=== PATIENT | female | born 1965 | race Asian ===

== ENCOUNTER 2020-03-04 21:28 | Emergency (ER) | payer OTHER ==
[2020-03-04] MEDS ORDERED: Morphine 2 MG/ML SYRINGE IVPUSH ONE ×2 (21:44→22:39)
[2020-03-04] MEDS ORDERED: Sodium Chloride 0.9% 10 ML Syringe FLUSH PRN (21:44)
--- NOTE | 2020-03-04 21:50 | EDM.PDOC ---
ED HPI GENERAL MEDICAL PROBLEM - General Chief Complaint: Chest Pain Stated Complaint: PAIN IN CHEST Time Seen by Provider: 03/04/20 21:40 Source of Information: Reports: Patient History Limitations: Reports: No Limitations - History of Present Illness INITIAL COMMENTS - FREE TEXT/NARRATIVE: This 54 yo female patient reports to the ED with a 2 hour history of upper abdominal, chest and upper back pain. The patient reports her symptoms started about 2 hours prior to her arrival in the ED. The patient reports her pain was initially pressure, but now is very hard to describe. The patient reports she has not taken anything for the pain, but was recently started on a steroid for her arthritis. The patient reports she has noticed some abdominal discomfort after taking the steroids. Onset: Today Onset Date: 03/04/20 Onset Time: 19:40 Duration: Constant Location: Reports: Chest, Abdomen, Back (Upper ) Quality: Reports: Ache, Dull Severity: Moderate Improves with: Reports: None Worsens with: Reports: None Context: Reports: Other Associated Symptoms: Reports: Chest Pain, Other Chest Pain Score (Numeric/FACES): 8 - Related Data Allergies Allergy/AdvReac Type Severity Reaction Status Date / Time metformin Allergy Other Verified 03/04/20 21:46 rofecoxib [From Vioxx] Allergy Facial Verified 03/04/20 21:46 Swelling Home Meds: Home Meds methylPREDNISolone [Methylprednisolone] 4 mg PO DAILY 03/04/20 [History] Past Medical History Cardiovascular History: Reports: High Cholesterol Neurological History: Reports: Other (See Below) Other Neuro History: sciatic nerve problem Endocrine/Metabolic History: Reports: Diabetes, Type II - Past Surgical History GI Surgical History: Reports: Appendectomy Social & Family History - Family History Family Medical History: Noncontributory - Caffeine Use Caffeine Use: Reports: Coffee ED ROS GENERAL - Review of Systems Review Of Systems: Comprehensive ROS is negative, except as noted in HPI. ED EXAM, GENERAL - Physical Exam Exam: See Below Exam Limited By: No Limitations General Appearance: Alert, WD/WN, Moderate Distress Eye Exam: Bilateral Eye: EOMI, Normal Inspection, PERRL Ears: Normal External Exam, Normal Canal, Hearing Grossly Normal, Normal TMs Nose: Normal Inspection, Normal Mucosa, No Blood Throat/Mouth: Normal Inspection, Normal Lips, Normal Teeth, Normal Gums, Normal Oropharynx, Normal Voice, No Airway Compromise Head: Atraumatic, Normocephalic Neck: Normal Inspection, Supple, Non-Tender, Full Range of Motion Respiratory/Chest: No Respiratory Distress, Lungs Clear, Normal Breath Sounds, No Accessory Muscle Use, Chest Non-Tender Cardiovascular: Normal Peripheral Pulses, Regular Rate, Rhythm, No Edema, No Gallop, No JVD, No Rub GI/Abdominal: Normal Bowel Sounds, Soft, No Organomegaly, No Distention, No Abnormal Bruit, No Mass, Guarding, Tender (Female) Exam: Deferred Rectal (Female) Exam: Deferred Back Exam: Normal Inspection, Full Range of Motion, NT Extremities: Normal Inspection, Normal Range of Motion, Non-Tender, Normal Capillary Refill, No Pedal Edema Neurological: Alert, Oriented, CN II-XII Intact, Normal Cognition, Normal Gait, Normal Reflexes, No Motor/Sensory Deficits Psychiatric: Normal Affect, Normal Mood Skin Exam: Warm, Dry, Intact, Normal Color, No Rash Lymphatic: No Adenopathy Course - Vital Signs Last Recorded V/S: Last Vital Signs Temp 35.5 C L 03/04/20 23:51 Pulse 72 03/04/20 23:51 Resp 16 03/04/20 23:51 BP 172/88 H 03/04/20 23:51 Pulse Ox 100 03/04/20 23:51 - Orders/Labs/Meds Orders: Active Orders 24 hr Category Date Time Status EKG 12 Lead [EKG Documentation Completion] [RC] ROUTINE Care 03/04/20 22:03 Active CULTURE BLOOD [BC] Stat Lab 03/04/20 22:02 Results Sodium Chloride 0.9% [Saline Flush] Med 03/04/20 21:44 Active 10 ml FLUSH ASDIRECTED PRN Saline Lock Insert [OM.PC] Routine Oth 03/04/20 21:44 Ordered Medication Orders Sodium Chloride (Saline Flush) 10 ml FLUSH ASDIRECTED PRN PRN Reason: Keep Vein Open Last Admin: 03/04/20 22:00 Dose: 10 ml Labs: Laboratory Tests 03/04/20 03/04/20 03/04/20 Range/Units 22:02 22:02 22:02 WBC 16.4 H (5.0-10.0) 10^3/uL RBC 4.50 (4.2-5.4) 10^6/uL Hgb 12.8 (12.0-16.0) g/dL Hct 39.6 (37.0-47.0) % MCV 88.0 (80-100) fL MCH 28.4 (27.0-34.0) pg MCHC 32.3 L (33.0-35.0) g/dL Plt Count 353 D (150-450) 10^3/uL Neut % (Auto) 58.3 (42.2-75.2) % Lymph % (Auto) 32.4 (20.5-50.1) % Mora % (Auto) 7.1 (2-8) % Eos % (Auto) 0.2 L (1.0-3.0) % Baso % (Auto) 0.2 (0.0-1.0) % Add Manual Diff Yes Neutrophils % (Manual) 53 (42-75) % Band Neutrophils % 5 % Lymphocytes % (Manual) 34 (20-50) % Monocytes % (Manual) 7 (2-8) % Eosinophils % (Manual) 1 (1-3) % Sodium (136-145) mmol/L Potassium (3.5-5.1) mmol/L Chloride (98-107) mmol/L Carbon Dioxide (21-32) mmol/L Anion Gap (7-13) mEq/L BUN (7-18) mg/dL Creatinine (0.55-1.02) mg/dL Est Cr Clr Drug Dosing mL/min Estimated GFR (MDRD) BUN/Creatinine Ratio (No establ ref range) Glucose (74-99) mg/dL Lactic Acid 2.3 H* (0.4-2.0) mmol/L Calcium (8.5-10.1) mg/dL Total Bilirubin (0.2-1.0) mg/dL AST (15-37) U/L ALT (14-59) U/L Alkaline Phosphatase (46-116) U/L Troponin I (0.000-0.056) ng/mL Total Protein (6.4-8.2) g/dL Albumin (3.4-5.0) g/dL Globulin Albumin/Globulin Ratio Amylase 89 (25-115) U/L Lipase 834 H (73-393) U/L 06/15/20 Range/Units 22:02 WBC (5.0-10.0) 10^3/uL RBC (4.2-5.4) 10^6/uL Hgb (12.0-16.0) g/dL Hct (37.0-47.0) % MCV (80-100) fL MCH (27.0-34.0) pg MCHC (33.0-35.0) g/dL Plt Count (150-450) 10^3/uL Neut % (Auto) (42.2-75.2) % Lymph % (Auto) (20.5-50.1) % Mora % (Auto) (2-8) % Eos % (Auto) (1.0-3.0) % Baso % (Auto) (0.0-1.0) % Add Manual Diff Neutrophils % (Manual) (42-75) % Band Neutrophils % % Lymphocytes % (Manual) (20-50) % Monocytes % (Manual) (2-8) % Eosinophils % (Manual) (1-3) % Sodium 141 (136-145) mmol/L Potassium 3.8 (3.5-5.1) mmol/L Chloride 103 (98-107) mmol/L Carbon Dioxide 28 (21-32) mmol/L Anion Gap 13.8 H (7-13) mEq/L BUN 20 H (7-18) mg/dL Creatinine 0.77 (0.55-1.02) mg/dL Est Cr Clr Drug Dosing 64.52 mL/min Estimated GFR (MDRD) > 60 BUN/Creatinine Ratio 26.0 (No establ ref range) Glucose 111 H (74-99) mg/dL Lactic Acid (0.4-2.0) mmol/L Calcium 8.7 (8.5-10.1) mg/dL Total Bilirubin 0.3 (0.2-1.0) mg/dL AST 12 L (15-37) U/L ALT 29 (14-59) U/L Alkaline Phosphatase 77 (46-116) U/L Troponin I < 0.017 (0.000-0.056) ng/mL Total Protein 7.2 (6.4-8.2) g/dL Albumin 3.6 (3.4-5.0) g/dL Globulin 3.6 Albumin/Globulin Ratio 1.0 Amylase (25-115) U/L Lipase (73-393) U/L Meds: Medications Generic Name Dose Route Start Last Admin Trade Name Erwinq PRN Reason Stop Dose Admin Sodium Chloride 10 ml 03/04/20 21:44 03/04/20 22:00 Saline Flush FLUSH 10 ml ASDIRECTED PRN Administration Keep Vein Open Discontinued Medications Generic Name Dose Route Start Last Admin Trade Name Erwinq PRN Reason Stop Dose Admin Al Hydroxide/Mg Hydroxide 30 ml 03/05/20 00:05 03/05/20 00:13 Gi Cocktail PO 03/05/20 00:06 30 ml ONETIME ONE Administration Hydromorphone HCl 0.5 mg 03/04/20 23:07 03/04/20 23:15 Dilaudid IVPUSH 03/04/20 23:08 0.5 mg ONETIME ONE Administration Hydromorphone HCl 0.5 mg 03/04/20 23:24 03/04/20 23:28 Dilaudid IVPUSH 03/04/20 23:25 0.5 mg ONETIME ONE Administration Iopamidol 100 ml 03/04/20 23:24 03/04/20 23:44 Isovue-300 (61%) IVPUSH 03/04/20 23:25 75 ml ONETIME ONE Administration Morphine Sulfate 2 mg 03/04/20 21:44 03/04/20 21:53 Morphine IVPUSH 03/04/20 21:45 2 mg ONETIME ONE Administration Morphine Sulfate 2 mg 03/04/20 22:39 03/04/20 22:44 Morphine IVPUSH 03/04/20 22:40 2 mg ONETIME ONE Administration Ondansetron HCl 4 mg 03/05/20 00:08 03/05/20 00:12 Zofran IVPUSH 03/05/20 00:09 4 mg ONETIME ONE Administration Pantoprazole Sodium 40 mg 03/05/20 00:47 03/05/20 00:52 Protonix Iv IVPUSH 03/05/20 00:48 40 mg ONETIME ONE Administration - Re-Assessments/Exams Free Text/Narrative Re-Assessment/Exam: 03/05/20 00:47 The patient was reevaluated. The patient reports her pain is down to a 5/10 after the GI Cocktail. An order was placed for the patient to get IV Protonix in the ED. The patient and her spouse were advised to call her [facility] to let them know that they were seen in the ED this evening due to abdominal pain. Departure - Departure Time of Disposition: 01:12 Disposition: Home, Self-Care 01 Condition: Fair Clinical Impression: Peptic ulcer - Discharge Information *PRESCRIPTION DRUG MONITORING PROGRAM REVIEWED*: Not Applicable *COPY OF PRESCRIPTION DRUG MONITORING REPORT IN PATIENT GABBY: Not Applicable Instructions: Peptic Ulcer, [id number] Forms: ED Department Discharge Care Plan Goals: The patient and spouse were advised of the examination, lab, EKG and CT results during the visit. The patient was given pain medications with little to no change in pain. The patient was given a GI Cocktail which reduced her symptoms. The patient was discharged with a script for Omeprazole (20 mg) #30 to take 1 by mouth 30 minutes prior to eating daily. The patient was encouraged to follow- up with her primary care provider for continued evaluation. The patient should call her [facility] to report her symptoms and visit history. The patient was advised to stop her steroids at this time due to the abdominal pain. If the patient has any additional symptoms or concerns, the patient should either return to the emergency department or visit her primary care facility. Sepsis Event Note (ED) - Focused Exam Vital Signs: Vital Signs Temp Pulse Resp BP Pulse Ox 03/04/20 23:51 35.5 C L 72 16 172/88 H 100 03/04/20 23:05 35.2 C L 66 20 155/92 H 100 03/04/20 22:10 74 20 155/97 H 100 03/04/20 21:30 36.8 C 76 18 147/94 H 100 - My Orders Last 24 Hours: My Active Orders 03/04/20 21:44 Sodium Chloride 0.9% [Saline Flush] 10 ml FLUSH ASDIRECTED PRN Saline Lock Insert [OM.PC] Routine 03/04/20 22:02 CULTURE BLOOD [BC] Stat 03/04/20 22:03 EKG 12 Lead [EKG Documentation Completion] [RC] ROUTINE - Assessment/Plan Last 24 Hours: My Active Orders 03/04/20 21:44 Sodium Chloride 0.9% [Saline Flush] 10 ml FLUSH ASDIRECTED PRN Saline Lock Insert [OM.PC] Routine 03/04/20 22:02 CULTURE BLOOD [BC] Stat 03/04/20 22:03 EKG 12 Lead [EKG Documentation Completion] [RC] ROUTINE
[2020-03-04] MEDS ORDERED: HYDROmorphone 0.5 MG/0.5 ML Syringe IVPUSH ONE ×2 (23:07→23:24)
[2020-03-04 23:17] LABS: ANION GAP 13.8 mEq/L (7-13); CHLORIDE,CL 103 mmol/L (98-107); SODIUM,NA 141 mmol/L (136-145)
[2020-03-04] MEDS ORDERED: Iopamidol 612 MG/ML 100 ML Bottle IVPUSH ONE (23:24)
[2020-03-04 23:52] VITALS: BP 172/88; PULSE 72
[2020-03-05] MEDS ORDERED: GI Cocktail Oral Solution 30 ML PO ONE (00:05)
--- NOTE | 2020-03-05 00:05 | CT ---
PROCEDURE INFORMATION: Exam: CT Abdomen And Pelvis With Contrast Exam date and time: 03/04/2020 11:41 PM Age: 54 years old Clinical indication: Abdominal pain; Generalized; Additional info: Abdominal pain to chest and right shoulder TECHNIQUE: Imaging protocol: Computed tomography of the abdomen and pelvis with intravenous contrast. Radiation optimization: All CT scans at this facility use at least one of these dose optimization techniques: automated exposure control; mA and/or kV adjustment per patient size (includes targeted exams where dose is matched to clinical indication); or iterative reconstruction. Contrast material: ISOVUE 300; Contrast volume: 75 ml; Contrast route: RH; COMPARISON: CT Abdomen Pelvis wo Cont 08/08/2018 7:10 AM FINDINGS: Lungs: No lung base abnormality noted. Liver: There is mild diffuse fatty infiltration of the liver, nonspecific. Gallbladder and bile ducts: Normal. No calcified stones. No ductal dilation. Pancreas: Normal. No ductal dilation. Spleen: Normal. No splenomegaly. Adrenals: Normal. No mass. Kidneys and ureters: Normal. No hydronephrosis. Stomach and bowel: Unremarkable. No obstruction. No mucosal thickening. Appendix: Previous appendectomy. Intraperitoneal space: Unremarkable. No free air. No significant fluid collection. Vasculature: Mild arterial sclerosis with multifocal plaque. Lymph nodes: Unremarkable. No enlarged lymph nodes. Bladder: Unremarkable as visualized. Reproductive: Unremarkable as visualized. Bones/joints: Unremarkable. No acute fracture. Soft tissues: Unremarkable. IMPRESSION: 1. No acute abdominal or pelvic CT pathology. 2. Diffuse fatty infiltration of the liver, nonspecific. 3. Previous appendectomy.
[2020-03-05] MEDS ORDERED: Ondansetron 4 MG/2 ML SDV IVPUSH ONE (00:08)
[2020-03-05] MEDS ORDERED: Pantoprazole 40 MG Vial IVPUSH ONE (00:47)
[2020-03-05] MEDS ORDERED: Promethazine 25 MG/ML SDV IM ONE (01:55)
== END 2020-03-05 02:14 | disposition home or self-care (01) ==
LOC: DL.ED 21:28
DX: K27.9 Peptic ulcer, site unspecified, unspecified as acute or chronic, without hemorrhage or perforation (principal); E11.9 Type 2 diabetes mellitus without complications; Z88.8 Allergy status to other drugs, medicaments and biological substances; Z79.899 Other long term (current) drug therapy; Z90.49 Acquired absence of other specified parts of digestive tract
CPT/HCPCS: 36415; 74177; 80053; 82150; 83605; 83690; 84484; 85025; 87040; 93005; 96372; 96374; 96375; 96376; 99285; A9270; C9113; J1170; J2270; J2405; J2550; Q9967; 99283

== ENCOUNTER 2021-09-20 17:10 | Inpatient (IN) | payer OTHER ==
[2021-09-20] MEDS ORDERED: Albuterol/Ipratropium 3.0-0.5 MG/3 ML Neb Soln NEB ONE (17:20)
[2021-09-20] MEDS ORDERED: Ondansetron 4 MG/2 ML SDV IV ONE (17:28)
[2021-09-20] MEDS ORDERED: Dexamethasone 4 MG/ML SDV IVPUSH ONE (17:29)
[2021-09-20] MEDS ORDERED: Sodium Chloride 0.9% 500 ML IV SCH (17:30)
[2021-09-20] MEDS: Sodium Chloride 0.9% 10 ML Syringe FLUSH PRN (17:38)
[2021-09-20 18:17] LABS: RESPIRATORY SYNCYTIAL VIR NAA NEGATIVE (NEGATIVE)
[2021-09-20 18:27] LABS: CORONAVIRUS COVID-19 NAA POSITIVE (NEGATIVE)
[2021-09-20 18:43] LABS: PTT,PARTIAL THROMBOPLSTIN TIME 23.3 SEC (22.0-34.0)
[2021-09-20 18:44] LABS: ANION GAP 11.8 mEq/L (7-13); CHLORIDE,CL 100 mmol/L (98-107); SODIUM,NA 139 mmol/L (136-145)
[2021-09-20] MEDS ORDERED: Potassium Chloride 20 MEQ in Premix Bag 1 BAG IV ONE ×2 (18:53→23:34)
--- NOTE | 2021-09-20 18:54 | EDM.PDOC ---
Scribed by Adelita Mina 09/20/21 [id number] for Ge Snell MD <Ge Snell - Last Filed: 09/20/21 18:54> ED HPI GENERAL MEDICAL PROBLEM - General Chief Complaint: General Stated Complaint: AMBULANCE Time Seen by Provider: 09/20/21 17:11 Source of Information: Reports: Patient, EMS, EMS Notes Reviewed, Old Records, RN, RN Notes Reviewed History Limitations: Reports: No Limitations - History of Present Illness INITIAL COMMENTS - FREE TEXT/NARRATIVE: Patient presents to ED by [facility] with complaint of sh ortness of breath, severe fatigue, malaise, dry mouth, and diarrhea. Admits to nausea. Denies vomiting, chest pain, or rash. She was diagnosed with COVID 14 days ago. She went to clinic this last week and was given IV fluids and IV antibiotics, but continued to worsen. Shortness of breath is so severe that she feels quite lightheaded and feels like she will faint if taking a few steps. Patient also reports she is on Humira for psoriatic arthritis. She is suppose to hold the Humira if she has an illness, but when she became ill with COVID she forgot and took the Humira anyway. Duration: Day(s): (15), Constant, Getting Worse Location: Reports: Chest, Generalized Severity: Severe Improves with: Reports: None Worsens with: Reports: Other (Activity/exertion) Context: Reports: Sick Contact Associated Symptoms: Reports: No Other Symptoms Generalized Pain Score (Numeric/FACES): 8 - Related Data Allergies Allergy/AdvReac Type Severity Reaction Status Date / Time metformin Allergy Other Verified 09/20/21 17:42 rofecoxib [From Vioxx] Allergy Facial Verified 09/20/21 17:42 Swelling Home Meds: Home Meds Amoxicillin/Potassium Clav [Amox Tr-K Clv 875-125 mg Tab] 1 each PO BID 09/20/21 [History] Azithromycin [Zithromax] 250 mg PO DAILY 09/20/21 [History] Empagliflozin [Jardiance] 25 mg PO DAILY 09/20/21 [History] Hydroxychloroquine [Plaquenil] 200 mg PO ASDIRECTED 09/20/21 [History] SitaGLIPtin [Januvia] 100 mg PO DAILY 09/20/21 [History] predniSONE [Prednisone] 5 mg PO DAILY 09/20/21 [History] sulfaSALAzine 500 mg PO TID 09/20/21 [History] Past Medical History - Past Health History Medical/Surgical History: Denies Medical/Surgical History HEENT History: Reports: Impaired Vision Cardiovascular History: Reports: High Cholesterol Gastrointestinal History: Reports: GERD Genitourinary History: Reports: Renal Calculus [employer] History: Reports: Musculoskeletal History: Reports: Arthritis Neurological History: Reports: Other (See Below) Other Neuro History: sciatic nerve problem Psychiatric History: Reports: Anxiety, Depression, Panic Attack Endocrine/Metabolic History: Reports: Diabetes, Type II Dermatologic History: Reports: Psoriasis - Past Surgical History GI Surgical History: Reports: Appendectomy Social & Family History - Family History Family Medical History: No Pertinent Family History - Caffeine Use Caffeine Use: Reports: Coffee - Living Situation & Occupation Living situation: Reports: , with Spouse ED ROS GENERAL - Review of Systems Review Of Systems: Comprehensive ROS is negative, except as noted in HPI. ED EXAM, GENERAL - Physical Exam Exam: See Below Exam Limited By: No Limitations General Appearance: Alert, No Apparent Distress, Other (Ill but non-toxic appearing) Eye Exam: Bilateral Eye: Normal Inspection Nose: Normal Inspection, Normal Mucosa, No Blood Throat/Mouth: Normal Lips, Normal Teeth, Normal Gums, Normal Oropharynx, Normal Voice, No Airway Compromise, Other (Dry oral mucosa) Head: Atraumatic, Normocephalic Neck: Normal Inspection, Supple, Non-Tender, Full Range of Motion. No: Lymphadenopathy (L), Lymphadenopathy (R) Respiratory/Chest: No Respiratory Distress, No Accessory Muscle Use, Chest Non- Tender, Decreased Breath Sounds Cardiovascular: Regular Rate, Rhythm, No Edema GI/Abdominal: Normal Bowel Sounds, Soft, Non-Tender. No: Guarding, Rigid, Rebound Back Exam: Normal Inspection Extremities: Normal Inspection, Normal Range of Motion, Non-Tender, No Pedal Edema, Normal Capillary Refill Neurological: Alert, Oriented, CN II-XII Intact, Normal Cognition, No Motor/Sensory Deficits Psychiatric: Normal Mood Skin Exam: Warm, Dry, Intact, Normal Color, No Rash Course - Re-Assessments/Exams Free Text/Narrative Re-Assessment/Exam: 09/20/21 18:54 Care of pt transferred to Warren Ruggiero [employer] at shift change. Departure - Discharge Information Forms: ED Department Discharge <Candy Ruggiero - Last Filed: 09/20/21 21:39> Course - Vital Signs Last Recorded V/S: Last Vital Signs Temp 97.5 F 09/20/21 17:19 Pulse 96 09/20/21 17:39 Resp 20 09/20/21 17:19 BP 120/59 L 09/20/21 17:19 Pulse Ox 96 09/20/21 17:19 - Orders/Labs/Meds Orders: Active Orders 24 hr Category Date Time Status Peripheral IV Care [RC] . DIRECTED Care 09/20/21 17:19 Active RT Aerosol Therapy [RC] ASDIRECTED Care 09/20/21 17:20 Active CULTURE BLOOD [BC] Stat Lab 09/20/21 18:12 Results CULTURE BLOOD [BC] Stat Lab 09/20/21 19:20 Received Sodium Chloride 0.9% [Normal Saline] 500 ml Med 09/20/21 17:30 Active IV .BOLUS Sodium Chloride 0.9% [Saline Flush] Med 09/20/21 17:19 Active 10 ml FLUSH ASDIRECTED PRN Blood Culture x2 Reflex Set [OM.PC] Stat Oth 09/20/21 17:18 Ordered Peripheral IV Insertion Adult [OM.PC] Stat Oth 09/20/21 17:19 Ordered Medication Orders Sodium Chloride (Normal Saline) 500 mls @ 999 mls/hr IV .BOLUS FLAVIO Last Admin: 09/20/21 17:39 Dose: 999 mls/hr Documented by: PALMER Sodium Chloride (Sodium Chloride 0.9% 10 Ml Syringe) 10 ml FLUSH ASDIRECTED PRN PRN Reason: Keep Vein Open Last Admin: 09/20/21 17:38 Dose: 10 ml Documented by: PALMER Labs: Laboratory Tests 09/20/21 09/20/21 09/20/21 Range/Units 17:21 18:12 18:12 WBC 7.5 (5.0-10.0) 10^3/uL RBC 4.61 (4.2-5.4) 10^6/uL Hgb 13.2 (12.0-16.0) g/dL Hct 40.1 (37.0-47.0) % MCV 87.0 (80-100) fL MCH 28.6 (27.0-34.0) pg MCHC 32.9 L (33.0-35.0) g/dL Plt Count 209 D (150-450) 10^3/uL Neut % (Auto) 81.0 H (42.2-75.2) % Lymph % (Auto) 13.6 L (20.5-50.1) % Elmore % (Auto) 5.2 (2-8) % Eos % (Auto) 0.1 L (1.0-3.0) % Baso % (Auto) 0.1 (0.0-1.0) % Add Manual Diff Yes Neutrophils % (Manual) 79 H (42-75) % Band Neutrophils % 8 % Lymphocytes % (Manual) 12 L (20-50) % Monocytes % (Manual) 1 L (2-8) % PT (9.0-12.0) SEC INR (0.9-1.2) APTT (22.0-34.0) SEC D-Dimer, Quantitative 2300 H (0-400) ng/mL Sodium (136-145) mmol/L Potassium (3.5-5.1) mmol/L Chloride (98-107) mmol/L Carbon Dioxide (21-32) mmol/L Anion Gap (7-13) mEq/L BUN (7-18) mg/dL Creatinine (0.55-1.02) mg/dL Est Cr Clr Drug Dosing mL/min Estimated GFR (MDRD) BUN/Creatinine Ratio (No establ ref range) Glucose (70-99) mg/dL Lactic Acid (0.4-2.0) mmol/L Calcium (8.5-10.1) mg/dL Ferritin (8-252) mg/mL Total Bilirubin (0.2-1.0) mg/dL AST (15-37) U/L ALT (14-59) U/L Alkaline Phosphatase (46-116) U/L Lactate Dehydrogenase (81-234) U/L Troponin I High Sens (<=51) pg/mL C-Reactive Protein (0.0-0.9) mg/dL B-Natriuretic Peptide (0-100) pg/ml Total Protein (6.4-8.2) g/dL Albumin (3.4-5.0) g/dL Globulin Albumin/Globulin Ratio Influenza Type A RNA Negative (NEGATIVE) RSV RNA (INAAT) Negative (NEGATIVE) Influenza Type B RNA Negative (NEGATIVE) SARS-CoV-2 RNA (ANGELINA) Positive H (NEGATIVE) 09/20/21 09/20/21 09/20/21 Range/Units 18:12 18:12 18:12 WBC (5.0-10.0) 10^3/uL RBC (4.2-5.4) 10^6/uL Hgb (12.0-16.0) g/dL Hct (37.0-47.0) % MCV (80-100) fL MCH (27.0-34.0) pg MCHC (33.0-35.0) g/dL Plt Count (150-450) 10^3/uL Neut % (Auto) (42.2-75.2) % Lymph % (Auto) (20.5-50.1) % Elmore % (Auto) (2-8) % Eos % (Auto) (1.0-3.0) % Baso % (Auto) (0.0-1.0) % Add Manual Diff Neutrophils % (Manual) (42-75) % Band Neutrophils % % Lymphocytes % (Manual) (20-50) % Monocytes % (Manual) (2-8) % PT 10.4 (9.0-12.0) SEC INR 1.0 (0.9-1.2) APTT 23.3 (22.0-34.0) SEC D-Dimer, Quantitative (0-400) ng/mL Sodium 139 (136-145) mmol/L Potassium 2.8 L (3.5-5.1) mmol/L Chloride 100 (98-107) mmol/L Carbon Dioxide 30 (21-32) mmol/L Anion Gap 11.8 (7-13) mEq/L BUN 3 L (7-18) mg/dL Creatinine 0.56 (0.55-1.02) mg/dL Est Cr Clr Drug Dosing 79.61 mL/min Estimated GFR (MDRD) > 60 BUN/Creatinine Ratio 5.4 (No establ ref range) Glucose 165 H (70-99) mg/dL Lactic Acid (0.4-2.0) mmol/L Calcium 7.8 L (8.5-10.1) mg/dL Ferritin 3086 H (8-252) mg/mL Total Bilirubin 0.5 (0.2-1.0) mg/dL AST 40 H (15-37) U/L ALT 29 (14-59) U/L Alkaline Phosphatase 53 (46-116) U/L Lactate Dehydrogenase 660 H (81-234) U/L Troponin I High Sens 7 (<=51) pg/mL C-Reactive Protein 8.6 H (0.0-0.9) mg/dL B-Natriuretic Peptide 7 (0-100) pg/ml Total Protein 5.8 L (6.4-8.2) g/dL Albumin 2.4 L (3.4-5.0) g/dL Globulin 3.4 Albumin/Globulin Ratio 0.71 Influenza Type A RNA (NEGATIVE) RSV RNA (INAAT) (NEGATIVE) Influenza Type B RNA (NEGATIVE) SARS-CoV-2 RNA (ANGELINA) (NEGATIVE) 09/20/21 Range/Units 18:12 WBC (5.0-10.0) 10^3/uL RBC (4.2-5.4) 10^6/uL Hgb (12.0-16.0) g/dL Hct (37.0-47.0) % MCV (80-100) fL MCH (27.0-34.0) pg MCHC (33.0-35.0) g/dL Plt Count (150-450) 10^3/uL Neut % (Auto) (42.2-75.2) % Lymph % (Auto) (20.5-50.1) % Elmore % (Auto) (2-8) % Eos % (Auto) (1.0-3.0) % Baso % (Auto) (0.0-1.0) % Add Manual Diff Neutrophils % (Manual) (42-75) % Band Neutrophils % % Lymphocytes % (Manual) (20-50) % Monocytes % (Manual) (2-8) % PT (9.0-12.0) SEC INR (0.9-1.2) APTT (22.0-34.0) SEC D-Dimer, Quantitative (0-400) ng/mL Sodium (136-145) mmol/L Potassium (3.5-5.1) mmol/L Chloride (98-107) mmol/L Carbon Dioxide (21-32) mmol/L Anion Gap (7-13) mEq/L BUN (7-18) mg/dL Creatinine (0.55-1.02) mg/dL Est Cr Clr Drug Dosing mL/min Estimated GFR (MDRD) BUN/Creatinine Ratio (No establ ref range) Glucose (70-99) mg/dL Lactic Acid 1.8 (0.4-2.0) mmol/L Calcium (8.5-10.1) mg/dL Ferritin (8-252) mg/mL Total Bilirubin (0.2-1.0) mg/dL AST (15-37) U/L ALT (14-59) U/L Alkaline Phosphatase (46-116) U/L Lactate Dehydrogenase (81-234) U/L Troponin I High Sens (<=51) pg/mL C-Reactive Protein (0.0-0.9) mg/dL B-Natriuretic Peptide (0-100) pg/ml Total Protein (6.4-8.2) g/dL Albumin (3.4-5.0) g/dL Globulin Albumin/Globulin Ratio Influenza Type A RNA (NEGATIVE) RSV RNA (INAAT) (NEGATIVE) Influenza Type B RNA (NEGATIVE) SARS-CoV-2 RNA (ANGELINA) (NEGATIVE) Meds: Medications Generic Name Dose Route Start Last Admin Trade Name Freq PRN Reason Stop Dose Admin Sodium Chloride 500 mls @ 999 mls/hr 09/20/21 17:30 09/20/21 17:39 Normal Saline IV 999 mls/hr .BOLUS FLAVIO Administration Sodium Chloride 10 ml 09/20/21 17:19 09/20/21 17:38 Sodium Chloride 0.9% 10 Ml Syringe FLUSH 10 ml ASDIRECTED PRN Administration Keep Vein Open Discontinued Medications Generic Name Dose Route Start Last Admin Trade Name Freq PRN Reason Stop Dose Admin Albuterol/Ipratropium 3 ml 09/20/21 17:20 09/20/21 17:30 Albuterol/Ipratropium 3.0-0.5 Mg/3 Ml Neb Soln NEB 09/20/21 17:21 3 ml ONETIME ONE Administration Dexamethasone 6 mg 09/20/21 17:29 09/20/21 17:37 Dexamethasone 4 Mg/Ml Sdv IVPUSH 09/20/21 17:30 6 mg ONETIME ONE Administration Potassium Chloride 20 meq/ 100 mls @ 50 mls/hr 09/20/21 18:53 09/20/21 19:32 Premix IV 09/20/21 20:52 50 mls/hr ONETIME ONE Administration Iopamidol 100 ml 09/20/21 19:12 09/20/21 20:21 Iopamidol 755 Mg/Ml 100 Ml Bottle IVPUSH 09/20/21 19:13 100 ml ONETIME ONE Administration Ondansetron HCl 4 mg 09/20/21 17:28 09/20/21 17:37 Ondansetron 4 Mg/2 Ml Sdv IV 09/20/21 17:29 4 mg ONETIME ONE Administration - Radiology Interpretation Free Text/Narrative:: [facility] Final Radiology Report Call: [phone] assistance Online chat: [email or web address] Data Name: SIL HARGROVE Age: 55Years F Date: 09/20/2021 SSN: -- : [id number] Study: CT CHEST W CONT Requesting Physician: Candy Ruggiero Images: [id number] Addl Studies: Provided Clinical History: r/o pulmonary embolism; D-dimer 2300; COVID + Contrast: With Contrast Medium: [id number] Contrast Amount: 80 mL Contrast Method: Intravenous (IV) Page 1 of 2 PROCEDURE INFORMATION: Exam: CTA Chest With Contrast Exam date and time: 09/20/2021 8:42 PM Age: 55 years old Clinical indication: Cough and other: R/O pe--covid+, d-dimer 2300, hypoxia; Additional info: R/O pulmonary embolism; D-dimer 2300; Covid + TECHNIQUE: Imaging protocol: Computed tomographic angiography of the chest with contrast. 3D rendering (Not supervised by radiologist): MIP and/or 3D reconstructed images were created and reviewed. Radiation optimization: All CT scans at this facility use at least one of these dose optimization techniques: automated exposure control; mA and/or kV adjustment per patient size (includes targeted exams where dose is matched to clinical indication); or iterative reconstruction. Contrast material: [id number]; Contrast volume: 80 ml; Contrast route: INTRAVENOUS (IV); COMPARISON: No relevant prior studies available. FINDINGS: Pulmonary arteries: No evidence of pulmonary embolus to the proximal segmental level in most cases. Aorta: Mild dilatation of the ascending thoracic aorta to about 36 mm. Lungs: Moderate bilateral ground-glass opacities bilaterally slightly sparing the apices. These findings are compatible with infection. Pleural spaces: Unremarkable. No pneumothorax. No pleural effusion. Heart: Unremarkable. No cardiomegaly. No pericardial effusion. Lymph nodes: Mild mediastinal adenopathy. Liver: Moderate hepatic hypoattenuation. Bones/joints: Unremarkable. No acute fracture. Soft tissues: Unremarkable. IMPRESSION: 1. No evidence of pulmonary embolus 2. Moderate bilateral airspace disease infection 3. Moderate hepatic steatosis Thank you for allowing us to participate in the care of your patient. Dictated and Authenticated by: Celestino Huddleston MD 09/20/2021 9:23 PM Central Time ([place] & [place]) - Re-Assessments/Exams Free Text/Narrative Re-Assessment/Exam: 09/20/21 Care of patient assumed at [address] Snell. Will obtain CT chest w/ to r/o PE given hypoxia and shortness of breath with an elevated d-dimer. Sepsis Event Note (ED) - Focused Exam Vital Signs: Vital Signs Temp Pulse Resp BP Pulse Ox 09/20/21 17:39 96 09/20/21 17:19 97.5 F 76 20 120/59 L 96 I have read and agree with the documentation that has been completed regarding this visit. By signing this record, I attest that the documentation was completed in my physical presence and is an accurate record of the encounter.
[2021-09-20] MEDS ORDERED: Iopamidol 755 Mg/ML 100 ML Bottle IVPUSH ONE (19:12)
--- NOTE | 2021-09-20 21:24 | CT ---
PROCEDURE INFORMATION: Exam: CTA Chest With Contrast Exam date and time: 09/20/2021 8:42 PM Age: 55 years old Clinical indication: Cough and other: R/O pe--covid+, d-dimer 2300, hypoxia; Additional info: R/O pulmonary embolism; D-dimer 2300; Covid + TECHNIQUE: Imaging protocol: Computed tomographic angiography of the chest with contrast. 3D rendering (Not supervised by radiologist): MIP and/or 3D reconstructed images were created and reviewed. Radiation optimization: All CT scans at this facility use at least one of these dose optimization techniques: automated exposure control; mA and/or kV adjustment per patient size (includes targeted exams where dose is matched to clinical indication); or iterative reconstruction. Contrast material: [id number]; Contrast volume: 80 ml; Contrast route: INTRAVENOUS (IV); COMPARISON: No relevant prior studies available. FINDINGS: Pulmonary arteries: No evidence of pulmonary embolus to the proximal segmental level in most cases. Aorta: Mild dilatation of the ascending thoracic aorta to about 36 mm. Lungs: Moderate bilateral ground-glass opacities bilaterally slightly sparing the apices. These findings are compatible with infection. Pleural spaces: Unremarkable. No pneumothorax. No pleural effusion. Heart: Unremarkable. No cardiomegaly. No pericardial effusion. Lymph nodes: Mild mediastinal adenopathy. Liver: Moderate hepatic hypoattenuation. Bones/joints: Unremarkable. No acute fracture. Soft tissues: Unremarkable. IMPRESSION: 1. No evidence of pulmonary embolus 2. Moderate bilateral airspace disease infection 3. Moderate hepatic steatosis
--- NOTE | 2021-09-20 22:54 | PCM.HP ---
H&P History of Present Illness - General Date of Service: 09/20/21 Admit Problem/Dx: Admission Diagnosis/Problem Admission Diagnosis/Problem Hypokalemia Source of Information: Patient, Old Records History Limitations: Reports: No Limitations - History of Present Illness Initial Comments - Free Text/Narative: Ms. Lockwood, 55 y/O Female, with history of diabetes type 2, ( followed psoriatic arthritis, former smoker, hyperlipidemia was seen in [facility] on 09/18/21 with c/o illness x 12 days. She stated she felt warm, chills, sore throat comes and goes, decreased appetite, occasional cough, weakness, nausea, some diarrhea, headaches, but had no loss of taste or smell. Initially Had myalgias but those have resolved She is not vaccinated for influenza or COVID. She was tested for COVID-19 on 09/18/21 and she tested Positive for COVID For psoriatic arthritis ,she is on humira, sulfasalazine, plaquenil. On that clinic visit date of 09/18/2021 she looked very dehydrated and was given 2 L of LR at the special procedure at [facility]. On that visit of 09/18/2021 she complains of having short of breath ,shaking from weakness and she had chest x- ray done that showed lower lobe infiltrates and she was restarted on treatment with azithromycin for 5 days and Augmentin for 10 days for Covid associated pneumonia, she has a started to take that medication, but she has been having diarrhea, feeling very weak, and has shortness of breath, with those complaints she came to ER and she had CT chest with contrast on September 20, 2021, because of her elevated D-dimer, and she is negative for PE. In ER she was also given half a liter of NS and she is requiring 3 L of oxygen to maintain her O2 sat around 90%. Since he is having symptoms for 2 weeks but never tested for Covid likely she has Covid from that time which is getting no worse and with that she is out of that window for remdesivir. She is negative for influenza A and B as well as RSV. She is now admitted in ICU with Covid isolation and will start her on dexamethasone as well as Zosyn and azithromycin. Onset of Symptoms: Reports: Gradual Duration of Symptoms: Reports: Day(s):, Getting Worse Improves with: Reports: Movement Associated Symptoms: Reports: Nausea/Vomiting Generalized Pain Score (Numeric/FACES): 8 - Related Data Allergies/Adverse Reactions: Allergies Allergy/AdvReac Type Severity Reaction Status Date / Time apremilast [From Otezla] Allergy Shortness Verified 09/20/21 23:17 of Breath metformin Allergy Other Verified 09/20/21 17:42 rofecoxib [From Vioxx] Allergy Facial Verified 09/20/21 17:42 Swelling Home Medications: Home Meds Amoxicillin/Potassium Clav [Amox Tr-K Clv 875-125 mg Tab] 1 each PO BID 09/20/21 [History] Azithromycin [Zithromax] 250 mg PO DAILY 09/20/21 [History] Empagliflozin [Jardiance] 25 mg PO DAILY 09/20/21 [History] Hydroxychloroquine [Plaquenil] 200 mg PO ASDIRECTED 09/20/21 [History] SitaGLIPtin [Januvia] 100 mg PO DAILY 09/20/21 [History] predniSONE [Prednisone] 5 mg PO DAILY 09/20/21 [History] sulfaSALAzine 500 mg PO TID 09/20/21 [History] Past Medical History - Past Health History Medical/Surgical History: Denies Medical/Surgical History HEENT History: Reports: Impaired Vision Cardiovascular History: Reports: High Cholesterol Respiratory History: Reports: None Gastrointestinal History: Reports: GERD Genitourinary History: Reports: Renal Calculus AIRLINE DISPATCHER History: Reports: Musculoskeletal History: Reports: Arthritis Neurological History: Reports: Other (See Below) Other Neuro History: sciatic nerve problem Psychiatric History: Reports: Anxiety, Depression, Panic Attack Endocrine/Metabolic History: Reports: Diabetes, Type II Hematologic History: Reports: None Immunologic History: Reports: None Oncologic (Cancer) History: Reports: None Dermatologic History: Reports: Psoriasis - Infectious Disease History Infectious Disease History: Reports: None - Past Surgical History GI Surgical History: Reports: Appendectomy Social & Family History - Family History Family Medical History: No Pertinent Family History - Tobacco Use Tobacco Use Status *Q: Former Tobacco User Used Tobacco, but Quit: Yes Month/Year Tobacco Last Used: 2009 - Caffeine Use Caffeine Use: Reports: Coffee - Recreational Drug Use Recreational Drug Use: No - Living Situation & Occupation Living situation: Reports: , with Spouse H&P Review of Systems - Review of Systems: Review Of Systems: See Below General: Reports: Weakness, Decreased Appetite. Denies: Fever, Chills HEENT: Reports: Sinus Congestion, Visual Changes. Denies: Sore Throat Pulmonary: Reports: Shortness of Breath. Denies: Cough, Sputum Cardiovascular: Reports: Dyspnea on Exertion. Denies: Chest Pain, Edema, Lightheadedness Gastrointestinal: Reports: Diarrhea, Decreased Appetite, Nausea, Vomiting. Denies: Abdominal Pain Genitourinary: Denies: Dysuria, Burning, Hematuria, Flank Pain Musculoskeletal: Reports: Joint Pain. Denies: Neck Pain, Leg Pain, Joint Swelling Skin: Denies: Jaundice, Bruising, Pruritis Psychiatric: Denies: Confusion, Anxiety Neurological: Reports: Weakness. Denies: Confusion, Numbness, Tremors Exam - Exam Exam: See Below - Vital Signs Vital Signs: Last Vital Signs Temp 36.4 C 09/20/21 17:19 Pulse 96 09/20/21 17:39 Resp 20 09/20/21 17:19 BP 120/59 L 09/20/21 17:19 Pulse Ox 96 09/20/21 17:19 Weight: 63.645 kg - Exam Quality Assessment: Supplemental Oxygen, DVT Prophylaxis. No: Central Line/PICC, Urinary Catheter General: Alert, Oriented, Cooperative, Mild Distress HEENT: Conjunctiva Clear, Hearing Intact, Mucosa Moist & [place] Neck: Supple. No: JVD, Thyromegaly Lungs: Clear to Auscultation, Normal Respiratory Effort, Decreased Breath Sounds (at lung B/L base). No: Wheezing Cardiovascular: Regular Rate, Regular Rhythm, Systolic Murmur GI/Abdominal Exam: Normal Bowel Sounds, Non-Tender, No Distention (Female) Exam: Deferred Rectal (Female) Exam: Deferred Back Exam: Normal Inspection Extremities: Normal Inspection, No Pedal Edema Skin: Warm, Dry, Intact Neurological: Cranial Nerves Intact Neuro Extensive - Mental Status: Alert, Oriented x3, Normal Mood/Affect, Normal Cognition Neuro Extensive - Motor, Sensory, Reflexes: CN II-XII Intact Psychiatric: Alert, Normal Affect, Normal Mood - Patient Data Lab Results Last 24 hrs: Laboratory Results - last 24 hr 09/20/21 09/20/21 09/20/21 Range/Units 17:12 17:21 18:12 WBC 7.5 (5.0-10.0) 10^3/uL RBC 4.61 (4.2-5.4) 10^6/uL Hgb 13.2 (12.0-16.0) g/dL Hct 40.1 (37.0-47.0) % MCV 87.0 (80-100) fL MCH 28.6 (27.0-34.0) pg MCHC 32.9 L (33.0-35.0) g/dL Plt Count 209 D (150-450) 10^3/uL Neut % (Auto) 81.0 H (42.2-75.2) % Lymph % (Auto) 13.6 L (20.5-50.1) % [place] % (Auto) 5.2 (2-8) % Eos % (Auto) 0.1 L (1.0-3.0) % Baso % (Auto) 0.1 (0.0-1.0) % Add Manual Diff Yes Neutrophils % (Manual) 79 H (42-75) % Band Neutrophils % 8 % Lymphocytes % (Manual) 12 L (20-50) % Monocytes % (Manual) 1 L (2-8) % PT (9.0-12.0) SEC INR (0.9-1.2) APTT (22.0-34.0) SEC D-Dimer, Quantitative (0-400) ng/mL Sodium (136-145) mmol/L Potassium (3.5-5.1) mmol/L Chloride (98-107) mmol/L Carbon Dioxide (21-32) mmol/L Anion Gap (7-13) mEq/L BUN (7-18) mg/dL Creatinine (0.55-1.02) mg/dL Est Cr Clr Drug Dosing mL/min Estimated GFR (MDRD) BUN/Creatinine Ratio (No establ ref range) Glucose (70-99) mg/dL Lactic Acid (0.4-2.0) mmol/L Calcium (8.5-10.1) mg/dL Magnesium 1.8 (1.8-2.4) mg/dL Ferritin (8-252) mg/mL Total Bilirubin (0.2-1.0) mg/dL AST (15-37) U/L ALT (14-59) U/L Alkaline Phosphatase (46-116) U/L Lactate Dehydrogenase (81-234) U/L Troponin I High Sens (<=51) pg/mL C-Reactive Protein (0.0-0.9) mg/dL B-Natriuretic Peptide (0-100) pg/ml Total Protein (6.4-8.2) g/dL Albumin (3.4-5.0) g/dL Globulin Albumin/Globulin Ratio Influenza Type A RNA Negative (NEGATIVE) RSV RNA (INAAT) Negative (NEGATIVE) Influenza Type B RNA Negative (NEGATIVE) SARS-CoV-2 RNA (ANGELINA) Positive H (NEGATIVE) 09/20/21 09/20/21 09/20/21 Range/Units 18:12 18:12 18:12 WBC (5.0-10.0) 10^3/uL RBC (4.2-5.4) 10^6/uL Hgb (12.0-16.0) g/dL Hct (37.0-47.0) % MCV (80-100) fL MCH (27.0-34.0) pg MCHC (33.0-35.0) g/dL Plt Count (150-450) 10^3/uL Neut % (Auto) (42.2-75.2) % Lymph % (Auto) (20.5-50.1) % [place]iggs % (Auto) (2-8) % Eos % (Auto) (1.0-3.0) % Baso % (Auto) (0.0-1.0) % Add Manual Diff Neutrophils % (Manual) (42-75) % Band Neutrophils % % Lymphocytes % (Manual) (20-50) % Monocytes % (Manual) (2-8) % PT 10.4 (9.0-12.0) SEC INR 1.0 (0.9-1.2) APTT 23.3 (22.0-34.0) SEC D-Dimer, Quantitative 2300 H (0-400) ng/mL Sodium 139 (136-145) mmol/L Potassium 2.8 L (3.5-5.1) mmol/L Chloride 100 (98-107) mmol/L Carbon Dioxide 30 (21-32) mmol/L Anion Gap 11.8 (7-13) mEq/L BUN 3 L (7-18) mg/dL Creatinine 0.56 (0.55-1.02) mg/dL Est Cr Clr Drug Dosing 79.61 mL/min Estimated GFR (MDRD) > 60 BUN/Creatinine Ratio 5.4 (No establ ref range) Glucose 165 H (70-99) mg/dL Lactic Acid (0.4-2.0) mmol/L Calcium 7.8 L (8.5-10.1) mg/dL Magnesium (1.8-2.4) mg/dL Ferritin (8-252) mg/mL Total Bilirubin 0.5 (0.2-1.0) mg/dL AST 40 H (15-37) U/L ALT 29 (14-59) U/L Alkaline Phosphatase 53 (46-116) U/L Lactate Dehydrogenase 660 H (81-234) U/L Troponin I High Sens 7 (<=51) pg/mL C-Reactive Protein 8.6 H (0.0-0.9) mg/dL B-Natriuretic Peptide 7 (0-100) pg/ml Total Protein 5.8 L (6.4-8.2) g/dL Albumin 2.4 L (3.4-5.0) g/dL Globulin 3.4 Albumin/Globulin Ratio 0.71 Influenza Type A RNA (NEGATIVE) RSV RNA (INAAT) (NEGATIVE) Influenza Type B RNA (NEGATIVE) SARS-CoV-2 RNA (ANGELINA) (NEGATIVE) 09/20/21 09/20/21 Range/Units 18:12 18:12 WBC (5.0-10.0) 10^3/uL RBC (4.2-5.4) 10^6/uL Hgb (12.0-16.0) g/dL Hct (37.0-47.0) % MCV (80-100) fL MCH (27.0-34.0) pg MCHC (33.0-35.0) g/dL Plt Count (150-450) 10^3/uL Neut % (Auto) (42.2-75.2) % Lymph % (Auto) (20.5-50.1) % [place]gs % (Auto) (2-8) % Eos % (Auto) (1.0-3.0) % Baso % (Auto) (0.0-1.0) % Add Manual Diff Neutrophils % (Manual) (42-75) % Band Neutrophils % % Lymphocytes % (Manual) (20-50) % Monocytes % (Manual) (2-8) % PT (9.0-12.0) SEC INR (0.9-1.2) APTT (22.0-34.0) SEC D-Dimer, Quantitative (0-400) ng/mL Sodium (136-145) mmol/L Potassium (3.5-5.1) mmol/L Chloride (98-107) mmol/L Carbon Dioxide (21-32) mmol/L Anion Gap (7-13) mEq/L BUN (7-18) mg/dL Creatinine (0.55-1.02) mg/dL Est Cr Clr Drug Dosing mL/min Estimated GFR (MDRD) BUN/Creatinine Ratio (No establ ref range) Glucose (70-99) mg/dL Lactic Acid 1.8 (0.4-2.0) mmol/L Calcium (8.5-10.1) mg/dL Magnesium (1.8-2.4) mg/dL Ferritin 3086 H (8-252) mg/mL Total Bilirubin (0.2-1.0) mg/dL AST (15-37) U/L ALT (14-59) U/L Alkaline Phosphatase (46-116) U/L Lactate Dehydrogenase (81-234) U/L Troponin I High Sens (<=51) pg/mL C-Reactive Protein (0.0-0.9) mg/dL B-Natriuretic Peptide (0-100) pg/ml Total Protein (6.4-8.2) g/dL Albumin (3.4-5.0) g/dL Globulin Albumin/Globulin Ratio Influenza Type A RNA (NEGATIVE) RSV RNA (INAAT) (NEGATIVE) Influenza Type B RNA (NEGATIVE) SARS-CoV-2 RNA (ANGELINA) (NEGATIVE) Result Diagrams: 09/20/21 18:12 09/20/21 18:12 Emeterio Results Last 24 hrs: Microbiology 09/20/21 18:12 Anaerobic Blood Culture - Final Blood - Arm, Left - Problem List (1) COVID-19 in immunocompromised patient SNOMED Code(s): 767956306, 395423612 ICD Code: U07.1 - COVID-19; D84.9 - IMMUNODEFICIENCY, UNSPECIFIED Status: Acute Current Visit: Yes (2) Hypoxia SNOMED Code(s): 788779188 ICD Code: R09.02 - HYPOXEMIA Status: Acute Current Visit: Yes (3) Pneumonia due to COVID-19 virus SNOMED Code(s): 591586998339928234 ICD Code: U07.1 - COVID-19; J12.82 - PNEUMONIA DUE TO CORONAVIRUS DISEASE 2018 Status: Acute Current Visit: Yes (4) Hypokalemia SNOMED Code(s): 36102538 ICD Code: E87.6 - HYPOKALEMIA Status: Acute Current Visit: Yes (5) Diabetes mellitus, type II SNOMED Code(s): 91648280 ICD Code: E11.9 - TYPE 2 DIABETES MELLITUS WITHOUT COMPLICATIONS Status: Acute Current Visit: Yes Problem List Initiated/Reviewed/Updated: Yes Orders Last 24hrs: Active Orders 24 hr Category Date Time Status Admission Diagnosis [ADT] Stat ADT 09/20/21 21:59 Ordered Admission Status [Patient Status] [ADT] Routine ADT 09/20/21 21:59 Active Peripheral IV Care [RC] . DIRECTED Care 09/20/21 17:19 Active RT Aerosol Therapy [RC] ASDIRECTED Care 09/20/21 17:20 Active CULTURE BLOOD [BC] Stat Lab 09/20/21 18:12 Results CULTURE BLOOD [BC] Stat Lab 09/20/21 19:20 Received Sodium Chloride 0.9% [Normal Saline] 500 ml Med 09/20/21 17:30 Active IV .BOLUS Sodium Chloride 0.9% [Saline Flush] Med 09/20/21 17:19 Active 10 ml FLUSH ASDIRECTED PRN Blood Culture x2 Reflex Set [OM.PC] Stat Oth 09/20/21 17:18 Ordered Peripheral IV Insertion Adult [OM.PC] Stat Oth 09/20/21 17:19 Ordered Medication Orders Sodium Chloride (Normal Saline) 500 mls @ 999 mls/hr IV .BOLUS FLAVIO Last Admin: 09/20/21 17:39 Dose: 999 mls/hr Documented by: PALMER Sodium Chloride (Sodium Chloride 0.9% 10 Ml Syringe) 10 ml FLUSH ASDIRECTED PRN PRN Reason: Keep Vein Open Last Admin: 09/20/21 17:38 Dose: 10 ml Documented by: PALMER Assessment/Plan Comment:: MS Lockwood, is a 55-year-old female with history of psoriatic arthritis on Humira, Plaquenil, and sulfasalazine, diabetes type 2 on oral hypoglycemics, hypertension, admitted to hospital today 1 /09/2021 because of hypoxia requiring oxygen, weakness, diarrhea, and Covid 19 positivity tested on 09/18/2021, even though the patient has symptoms for more than 2 weeks but not tested for Covid as seen did not pursue any visit with any physician, she came to clinic only 09/18/2021 when she was weak, having difficulty with breathing, and looked dehydrated. That is the time she was tested for Covid but she likely had Covid prior to that positive test . Impression and plan: 1. COVID-19 infection with lower lobe pneumonia: The patient has now shortness of breath requiring oxygen and since he has the symptom for more than 2 weeks she has passed that window of remdesivir, will start her on dexamethasone 6 mg IV daily, and will start her on Zosyn 3.375 mg iv every 6 hours , and also will start her on azithromycin at 500 mg IV daily. We will continue her with nasal cannula oxygen and titrated to keep the oxygen saturation at or above 90. We will check her renal lab, LFTs, and D-dimer daily. We will start her on Lovenox 40 mg subcu daily. We will get chest x-ray in the morning. 2. Hypokalemia: Her potassium is low and this is likely secondary to poor oral intake as well as diarrhea, will replace potassium orally as well as intravenously and recheck the potassium after the infusion is done. 3. Diabetes type 2: We will start her on oral hypoglycemics and will check her blood sugar 4 times a day and also will start her on sliding scale insulin as per hospital protocol. 4. Psoriatic arthritis: We will continue her with Plaquenil and hold s ulfasalazine and Humira. 5. GI prophylaxis: We will start her on Protonix 40 mg p.o. daily. DVT prophylaxis: Patient has elevated D-dimer and will start her on Lovenox 40 mg subcu daily. CODE STATUS: Discussed with patient the CODE STATUS and she wish to be full code. This dictation for this patient is done via [employer] system.
[2021-09-20] MEDS ORDERED: Hydroxychloroquine 200 MG Tab PO SCH (23:30)
[2021-09-20] MEDS ORDERED: Azithromycin 500 MG in Sodium Chloride 0.9% 250 ML IV ONE (23:45)
[2021-09-21] MEDS ORDERED: Glucagon,Human Recombinant 1 MG Vial IM PRN
[2021-09-21] MEDS ORDERED: 50% Dextrose in Water 50 ML Syringe IVPUSH PRN
[2021-09-21] MEDS: Enoxaparin 40 MG/0.4 ML Syringe SUBCUT SCH ×2 (00:40→08:48)
[2021-09-21] MEDS: Dexamethasone 4 MG/ML SDV IVPUSH SCH ×2 (00:41→08:46)
[2021-09-21] MEDS: Piperacillin/Tazobactam 3.375 GM in Sodium Chloride 0.9% 100 ML IV SCH ×4 (00:42→17:37)
[2021-09-21] MEDS ORDERED: Lidocaine 1% 30 ML SDV ONE (01:59)
[2021-09-21 07:29] LABS: PTT,PARTIAL THROMBOPLSTIN TIME 25.6 SEC (22.0-34.0)
[2021-09-21 08:02] LABS: ANION GAP 12.2 mEq/L (7-13); CHLORIDE,CL 109 mmol/L (98-107); SODIUM,NA 145 mmol/L (136-145)
[2021-09-21] MEDS: Insulin Lispro 100 Units/ML 3 ML Vial SUBCUT SCH ×4 (08:44→23:17)
[2021-09-21] MEDS: Potassium Chloride 10 MEQ Tab.ER PO SCH (08:46)
[2021-09-21] MEDS ORDERED: sulfaSALAzine 500 MG Tab PO SCH (09:00)
--- NOTE | 2021-09-21 10:53 | PCM.PN ---
- General Info Date of Service: 09/21/21 Admission Dx/Problem (Free Text): Admission Diagnosis/Problem Admission Diagnosis/Problem Hypokalemia and Hypoxia, Diarrhea Subjective Update: Patient was seen in rounds today, says he still on nasal cannula oxygen 3 L and that keeping her O2 sat at close to 90 to 92%, her taste is bad and has no appetite, she is not doing any active participation with nursing not moving around. Functional Status: Reports: Pain Controlled, Tolerating Diet, Urinating - Review of Systems General: Reports: Weakness, Appetite (poor, has no taste). Denies: Fever, Chills HEENT: Denies: Headaches, Sinus Congestion, Sore Throat, Visual Changes Pulmonary: Reports: Shortness of Breath. Denies: Cough, Sputum, Wheezing Cardiovascular: Denies: Chest Pain, Dyspnea on Exertion, Edema, Lightheadedness Gastrointestinal: Reports: Decreased Appetite, Diarrhea. Denies: Abdominal Pain , Nausea, Vomiting Genitourinary: Denies: Dysuria, Frequency, Burning, Urgency, Flank Pain Musculoskeletal: Denies: Neck Pain, Leg Pain, Joint Swelling Skin: Denies: Jaundice, Diaphoresis, Bruising, Pruritis, Rash Neurological: Denies: Confusion, Numbness, Tremors Psychiatric: Denies: Confusion, Anxiety - Patient Data Vitals - Most Recent: Last Vital Signs Temp 35.8 C L 09/21/21 08:37 Pulse 81 09/21/21 08:37 Resp 20 09/21/21 08:37 BP 110/74 09/21/21 08:37 Pulse Ox 96 09/21/21 08:37 Weight - Most Recent: 61.507 kg Lab Results Last 24 Hours: Laboratory Results - last 24 hr 09/20/21 09/20/21 09/20/21 Range/Units 17:12 17:21 18:12 WBC 7.5 (5.0-10.0) 10^3/uL RBC 4.61 (4.2-5.4) 10^6/uL Hgb 13.2 (12.0-16.0) g/dL Hct 40.1 (37.0-47.0) % MCV 87.0 (80-100) fL MCH 28.6 (27.0-34.0) pg MCHC 32.9 L (33.0-35.0) g/dL Plt Count 209 D (150-450) 10^3/uL Neut % (Auto) 81.0 H (42.2-75.2) % Lymph % (Auto) 13.6 L (20.5-50.1) % [place] % (Auto) 5.2 (2-8) % Eos % (Auto) 0.1 L (1.0-3.0) % Baso % (Auto) 0.1 (0.0-1.0) % Add Manual Diff Yes Neutrophils % (Manual) 79 H (42-75) % Band Neutrophils % 8 % Lymphocytes % (Manual) 12 L (20-50) % Monocytes % (Manual) 1 L (2-8) % PT (9.0-12.0) SEC INR (0.9-1.2) APTT (22.0-34.0) SEC D-Dimer, Quantitative (0-400) ng/mL Sodium (136-145) mmol/L Potassium (3.5-5.1) mmol/L Chloride (98-107) mmol/L Carbon Dioxide (21-32) mmol/L Anion Gap (7-13) mEq/L BUN (7-18) mg/dL Creatinine (0.55-1.02) mg/dL Est Cr Clr Drug Dosing mL/min Estimated GFR (MDRD) BUN/Creatinine Ratio (No establ ref range) Glucose (70-99) mg/dL Lactic Acid (0.4-2.0) mmol/L Calcium (8.5-10.1) mg/dL Magnesium 1.8 (1.8-2.4) mg/dL Ferritin (8-252) mg/mL Total Bilirubin (0.2-1.0) mg/dL AST (15-37) U/L ALT (14-59) U/L Alkaline Phosphatase (46-116) U/L Lactate Dehydrogenase (81-234) U/L Troponin I High Sens (<=51) pg/mL C-Reactive Protein (0.0-0.9) mg/dL B-Natriuretic Peptide (0-100) pg/ml Total Protein (6.4-8.2) g/dL Albumin (3.4-5.0) g/dL Globulin Albumin/Globulin Ratio Influenza Type A RNA Negative (NEGATIVE) RSV RNA (INAAT) Negative (NEGATIVE) Influenza Type B RNA Negative (NEGATIVE) SARS-CoV-2 RNA (ANGELINA) Positive H (NEGATIVE) 09/20/21 09/20/21 09/20/21 Range/Units 18:12 18:12 18:12 WBC (5.0-10.0) 10^3/uL RBC (4.2-5.4) 10^6/uL Hgb (12.0-16.0) g/dL Hct (37.0-47.0) % MCV (80-100) fL MCH (27.0-34.0) pg MCHC (33.0-35.0) g/dL Plt Count (150-450) 10^3/uL Neut % (Auto) (42.2-75.2) % Lymph % (Auto) (20.5-50.1) % [place] % (Auto) (2-8) % Eos % (Auto) (1.0-3.0) % Baso % (Auto) (0.0-1.0) % Add Manual Diff Neutrophils % (Manual) (42-75) % Band Neutrophils % % Lymphocytes % (Manual) (20-50) % Monocytes % (Manual) (2-8) % PT 10.4 (9.0-12.0) SEC INR 1.0 (0.9-1.2) APTT 23.3 (22.0-34.0) SEC D-Dimer, Quantitative 2300 H (0-400) ng/mL Sodium 139 (136-145) mmol/L Potassium 2.8 L (3.5-5.1) mmol/L Chloride 100 (98-107) mmol/L Carbon Dioxide 30 (21-32) mmol/L Anion Gap 11.8 (7-13) mEq/L BUN 3 L (7-18) mg/dL Creatinine 0.56 (0.55-1.02) mg/dL Est Cr Clr Drug Dosing 79.61 mL/min Estimated GFR (MDRD) > 60 BUN/Creatinine Ratio 5.4 (No establ ref range) Glucose 165 H (70-99) mg/dL Lactic Acid (0.4-2.0) mmol/L Calcium 7.8 L (8.5-10.1) mg/dL Magnesium (1.8-2.4) mg/dL Ferritin (8-252) mg/mL Total Bilirubin 0.5 (0.2-1.0) mg/dL AST 40 H (15-37) U/L ALT 29 (14-59) U/L Alkaline Phosphatase 53 (46-116) U/L Lactate Dehydrogenase 660 H (81-234) U/L Troponin I High Sens 7 (<=51) pg/mL C-Reactive Protein 8.6 H (0.0-0.9) mg/dL B-Natriuretic Peptide 7 (0-100) pg/ml Total Protein 5.8 L (6.4-8.2) g/dL Albumin 2.4 L (3.4-5.0) g/dL Globulin 3.4 Albumin/Globulin Ratio 0.71 Influenza Type A RNA (NEGATIVE) RSV RNA (INAAT) (NEGATIVE) Influenza Type B RNA (NEGATIVE) SARS-CoV-2 RNA (ANGELINA) (NEGATIVE) 09/20/21 09/20/21 09/21/21 Range/Units 18:12 18:12 06:55 WBC 5.2 (5.0-10.0) 10^3/uL RBC 4.28 (4.2-5.4) 10^6/uL Hgb 12.3 (12.0-16.0) g/dL Hct 37.5 (37.0-47.0) % MCV 87.6 (80-100) fL MCH 28.7 (27.0-34.0) pg MCHC 32.8 L (33.0-35.0) g/dL Plt Count 223 (150-450) 10^3/uL Neut % (Auto) 81.6 H (42.2-75.2) % Lymph % (Auto) 14.9 L (20.5-50.1) % [place] % (Auto) 3.3 (2-8) % Eos % (Auto) 0.0 L (1.0-3.0) % Baso % (Auto) 0.2 (0.0-1.0) % Add Manual Diff Neutrophils % (Manual) (42-75) % Band Neutrophils % % Lymphocytes % (Manual) (20-50) % Monocytes % (Manual) (2-8) % PT (9.0-12.0) SEC INR (0.9-1.2) APTT (22.0-34.0) SEC D-Dimer, Quantitative (0-400) ng/mL Sodium (136-145) mmol/L Potassium (3.5-5.1) mmol/L Chloride (98-107) mmol/L Carbon Dioxide (21-32) mmol/L Anion Gap (7-13) mEq/L BUN (7-18) mg/dL Creatinine (0.55-1.02) mg/dL Est Cr Clr Drug Dosing mL/min Estimated GFR (MDRD) BUN/Creatinine Ratio (No establ ref range) Glucose (70-99) mg/dL Lactic Acid 1.8 (0.4-2.0) mmol/L Calcium (8.5-10.1) mg/dL Magnesium (1.8-2.4) mg/dL Ferritin 3086 H (8-252) mg/mL Total Bilirubin (0.2-1.0) mg/dL AST (15-37) U/L ALT (14-59) U/L Alkaline Phosphatase (46-116) U/L Lactate Dehydrogenase (81-234) U/L Troponin I High Sens (<=51) pg/mL C-Reactive Protein (0.0-0.9) mg/dL B-Natriuretic Peptide (0-100) pg/ml Total Protein (6.4-8.2) g/dL Albumin (3.4-5.0) g/dL Globulin Albumin/Globulin Ratio Influenza Type A RNA (NEGATIVE) RSV RNA (INAAT) (NEGATIVE) Influenza Type B RNA (NEGATIVE) SARS-CoV-2 RNA (ANGELINA) (NEGATIVE) 09/21/21 09/21/21 Range/Units 06:55 06:55 WBC (5.0-10.0) 10^3/uL RBC (4.2-5.4) 10^6/uL Hgb (12.0-16.0) g/dL Hct (37.0-47.0) % MCV (80-100) fL MCH (27.0-34.0) pg MCHC (33.0-35.0) g/dL Plt Count (150-450) 10^3/uL Neut % (Auto) (42.2-75.2) % Lymph % (Auto) (20.5-50.1) % [place] % (Auto) (2-8) % Eos % (Auto) (1.0-3.0) % Baso % (Auto) (0.0-1.0) % Add Manual Diff Neutrophils % (Manual) (42-75) % Band Neutrophils % % Lymphocytes % (Manual) (20-50) % Monocytes % (Manual) (2-8) % PT (9.0-12.0) SEC INR (0.9-1.2) APTT 25.6 (22.0-34.0) SEC D-Dimer, Quantitative 1250 H (0-400) ng/mL Sodium 145 (136-145) mmol/L Potassium 4.2 (3.5-5.1) mmol/L Chloride 109 H (98-107) mmol/L Carbon Dioxide 28 (21-32) mmol/L Anion Gap 12.2 (7-13) mEq/L BUN 4 L (7-18) mg/dL Creatinine 0.49 L (0.55-1.02) mg/dL Est Cr Clr Drug Dosing 90.99 mL/min Estimated GFR (MDRD) > 60 BUN/Creatinine Ratio 8.2 (No establ ref range) Glucose 189 H (70-99) mg/dL Lactic Acid (0.4-2.0) mmol/L Calcium 8.1 L (8.5-10.1) mg/dL Magnesium (1.8-2.4) mg/dL Ferritin (8-252) mg/mL Total Bilirubin 0.5 (0.2-1.0) mg/dL AST 31 (15-37) U/L ALT 31 (14-59) U/L Alkaline Phosphatase 45 L (46-116) U/L Lactate Dehydrogenase (81-234) U/L Troponin I High Sens (<=51) pg/mL C-Reactive Protein (0.0-0.9) mg/dL B-Natriuretic Peptide (0-100) pg/ml Total Protein 5.9 L (6.4-8.2) g/dL Albumin 2.2 L (3.4-5.0) g/dL Globulin 3.7 Albumin/Globulin Ratio 0.59 Influenza Type A RNA (NEGATIVE) RSV RNA (INAAT) (NEGATIVE) Influenza Type B RNA (NEGATIVE) SARS-CoV-2 RNA (ANGELINA) (NEGATIVE) Emeterio Results Last 24 Hours: Microbiology 09/20/21 18:12 Anaerobic Blood Culture - Final Blood - Arm, Left Med Orders - Current: Current Medications Dexamethasone (Dexamethasone 4 Mg/Ml Sdv) 6 mg IVPUSH DAILY [facility] Last Admin: 09/21/21 08:46 Dose: 6 mg Documented by: Dextrose/Water (50% Dextrose In Water 50 Ml Syringe) 50 ml IVPUSH Q15M PRN PRN Reason: Hypoglycemia Enoxaparin Sodium (Enoxaparin 40 Mg/0.4 Ml Syringe) 40 mg SUBCUT DAILY [facility] Last Admin: 09/21/21 08:48 Dose: 40 mg Documented by: Glucagon (Glucagon,Human Recombinant 1 Mg Vial) 1 mg IM Q15M PRN PRN Reason: Hypoglycemia Hydroxychloroquine Sulfate (Hydroxychloroquine 200 Mg Tab) 200 mg PO ASDIRECTED [facility] Sodium Chloride (Normal Saline) 500 mls @ 999 mls/hr IV .BOLUS [facility] Last Admin: 09/20/21 17:39 Dose: 999 mls/hr Documented by: Piperacillin Sod/Tazobactam (Sod 3.375 gm/ Sodium Chloride) 100 mls @ 200 mls/hr IV Q6H [facility] Last Admin: 09/21/21 05:38 Dose: 200 mls/hr Documented by: Azithromycin 500 mg/ Sodium (Chloride) 250 mls @ 250 mls/hr IV Q24H [facility] Insulin Human Lispro (Insulin Lispro 100 Units/Ml 3 Ml Vial) 0 unit SUBCUT WITH MEALSANDBED [facility]; Protocol Last Admin: 09/21/21 08:44 Dose: 2 units Documented by: Non-Formulary Medication (Empagliflozin [Jardiance]) 25 mg PO DAILY [facility] Non-Formulary Medication (Sitagliptin) 100 mg PO DAILY [facility] Potassium Chloride (Potassium Chloride 10 Meq Tab.Er) 20 meq PO DAILY [facility] Last Admin: 09/21/21 08:46 Dose: 20 meq Documented by: Sodium Chloride (Sodium Chloride 0.9% 10 Ml Syringe) 10 ml FLUSH ASDIRECTED PRN PRN Reason: Keep Vein Open Last Admin: 09/20/21 17:38 Dose: 10 ml Documented by: Discontinued Medications Albuterol/Ipratropium (Albuterol/Ipratropium 3.0-0.5 Mg/3 Ml Neb Soln) 3 ml NEB ONETIME ONE Stop: 09/20/21 17:21 Last Admin: 09/20/21 17:30 Dose: 3 ml Documented by: Dexamethasone (Dexamethasone 4 Mg/Ml Sdv) 6 mg IVPUSH ONETIME ONE Stop: 09/20/21 17:30 Last Admin: 09/20/21 17:37 Dose: 6 mg Documented by: Potassium Chloride 20 meq/ (Premix) 100 mls @ 50 mls/hr IV ONETIME ONE Stop: 09/20/21 20:52 Last Admin: 09/20/21 19:32 Dose: 50 mls/hr Documented by: Potassium Chloride 20 meq/ (Premix) 100 mls @ 50 mls/hr IV ONETIME ONE Stop: 09/21/21 01:33 Last Admin: 09/21/21 03:03 Dose: 50 mls/hr Documented by: Azithromycin 500 mg/ Sodium (Chloride) 250 mls @ 250 mls/hr IV ONETIME ONE Stop: 09/21/21 00:44 Last Admin: 09/21/21 00:42 Dose: 250 mls/hr Documented by: Iopamidol (Iopamidol 755 Mg/Ml 100 Ml Bottle) 100 ml IVPUSH ONETIME ONE Stop: 09/20/21 19:13 Last Admin: 09/20/21 20:21 Dose: 100 ml Documented by: Lidocaine HCl (Lidocaine 1% 5 Ml Sdv) 1 ml INJECT ONETIME ONE Stop: 09/20/21 23:36 Last Admin: 09/21/21 03:00 Dose: Not Given Documented by: Lidocaine HCl (Lidocaine 1% 30 Ml Sdv) Confirm Administered Dose 30 ml .ROUTE .STK-MED ONE Stop: 09/21/21 02:00 Last Admin: 09/21/21 02:59 Dose: 1 ml Documented by: Ondansetron HCl (Ondansetron 4 Mg/2 Ml Sdv) 4 mg IV ONETIME ONE Stop: 09/20/21 17:29 Last Admin: 09/20/21 17:37 Dose: 4 mg Documented by: Sulfasalazine (Sulfasalazine 500 Mg Tab) 500 mg PO TID FLAVIO - Exam Quality Assessment: Supplemental Oxygen, DVT Prophylaxis. No: Central Line/PICC, Urine Catheter General: Alert, Oriented, Cooperative, No Acute Distress HEENT: Pupils Equal, Pupils Reactive, EOMI, Mucous Membr. Moist/[place] Neck: Supple, No JVD, No Thyromegaly Lungs: Clear to Auscultation, Normal Respiratory Effort. No: Crackles, Wheezing Cardiovascular: Regular Rate, Regular Rhythm, Murmurs GI/Abdominal Exam: Normal Bowel Sounds, Non-Tender, No Distention (Female) Exam: Deferred Back Exam: Normal Inspection Extremities: Normal Inspection, No Pedal Edema Skin: Warm, Dry, Intact Neurological: No New Focal Deficit Psy/Mental Status: Alert, Normal Affect, Normal Mood - Patient Data Lab Results Last 24 hrs: Laboratory Results - last 24 hr 09/20/21 09/20/21 09/20/21 Range/Units 17:12 17:21 18:12 WBC 7.5 (5.0-10.0) 10^3/uL RBC 4.61 (4.2-5.4) 10^6/uL Hgb 13.2 (12.0-16.0) g/dL Hct 40.1 (37.0-47.0) % MCV 87.0 (80-100) fL MCH 28.6 (27.0-34.0) pg MCHC 32.9 L (33.0-35.0) g/dL Plt Count 209 D (150-450) 10^3/uL Neut % (Auto) 81.0 H (42.2-75.2) % Lymph % (Auto) 13.6 L (20.5-50.1) % [place] % (Auto) 5.2 (2-8) % Eos % (Auto) 0.1 L (1.0-3.0) % Baso % (Auto) 0.1 (0.0-1.0) % Add Manual Diff Yes Neutrophils % (Manual) 79 H (42-75) % Band Neutrophils % 8 % Lymphocytes % (Manual) 12 L (20-50) % Monocytes % (Manual) 1 L (2-8) % PT (9.0-12.0) SEC INR (0.9-1.2) APTT (22.0-34.0) SEC D-Dimer, Quantitative (0-400) ng/mL Sodium (136-145) mmol/L Potassium (3.5-5.1) mmol/L Chloride (98-107) mmol/L Carbon Dioxide (21-32) mmol/L Anion Gap (7-13) mEq/L BUN (7-18) mg/dL Creatinine (0.55-1.02) mg/dL Est Cr Clr Drug Dosing mL/min Estimated GFR (MDRD) BUN/Creatinine Ratio (No establ ref range) Glucose (70-99) mg/dL Lactic Acid (0.4-2.0) mmol/L Calcium (8.5-10.1) mg/dL Magnesium 1.8 (1.8-2.4) mg/dL Ferritin (8-252) mg/mL Total Bilirubin (0.2-1.0) mg/dL AST (15-37) U/L ALT (14-59) U/L Alkaline Phosphatase (46-116) U/L Lactate Dehydrogenase (81-234) U/L Troponin I High Sens (<=51) pg/mL C-Reactive Protein (0.0-0.9) mg/dL B-Natriuretic Peptide (0-100) pg/ml Total Protein (6.4-8.2) g/dL Albumin (3.4-5.0) g/dL Globulin Albumin/Globulin Ratio Influenza Type A RNA Negative (NEGATIVE) RSV RNA (INAAT) Negative (NEGATIVE) Influenza Type B RNA Negative (NEGATIVE) SARS-CoV-2 RNA (ANGELINA) Positive H (NEGATIVE) 09/20/21 09/20/21 09/20/21 Range/Units 18:12 18:12 18:12 WBC (5.0-10.0) 10^3/uL RBC (4.2-5.4) 10^6/uL Hgb (12.0-16.0) g/dL Hct (37.0-47.0) % MCV (80-100) fL MCH (27.0-34.0) pg MCHC (33.0-35.0) g/dL Plt Count (150-450) 10^3/uL Neut % (Auto) (42.2-75.2) % Lymph % (Auto) (20.5-50.1) % [place] % (Auto) (2-8) % Eos % (Auto) (1.0-3.0) % Baso % (Auto) (0.0-1.0) % Add Manual Diff Neutrophils % (Manual) (42-75) % Band Neutrophils % % Lymphocytes % (Manual) (20-50) % Monocytes % (Manual) (2-8) % PT 10.4 (9.0-12.0) SEC INR 1.0 (0.9-1.2) APTT 23.3 (22.0-34.0) SEC D-Dimer, Quantitative 2300 H (0-400) ng/mL Sodium 139 (136-145) mmol/L Potassium 2.8 L (3.5-5.1) mmol/L Chloride 100 (98-107) mmol/L Carbon Dioxide 30 (21-32) mmol/L Anion Gap 11.8 (7-13) mEq/L BUN 3 L (7-18) mg/dL Creatinine 0.56 (0.55-1.02) mg/dL Est Cr Clr Drug Dosing 79.61 mL/min Estimated GFR (MDRD) > 60 BUN/Creatinine Ratio 5.4 (No establ ref range) Glucose 165 H (70-99) mg/dL Lactic Acid (0.4-2.0) mmol/L Calcium 7.8 L (8.5-10.1) mg/dL Magnesium (1.8-2.4) mg/dL Ferritin (8-252) mg/mL Total Bilirubin 0.5 (0.2-1.0) mg/dL AST 40 H (15-37) U/L ALT 29 (14-59) U/L Alkaline Phosphatase 53 (46-116) U/L Lactate Dehydrogenase 660 H (81-234) U/L Troponin I High Sens 7 (<=51) pg/mL C-Reactive Protein 8.6 H (0.0-0.9) mg/dL B-Natriuretic Peptide 7 (0-100) pg/ml Total Protein 5.8 L (6.4-8.2) g/dL Albumin 2.4 L (3.4-5.0) g/dL Globulin 3.4 Albumin/Globulin Ratio 0.71 Influenza Type A RNA (NEGATIVE) RSV RNA (INAAT) (NEGATIVE) Influenza Type B RNA (NEGATIVE) SARS-CoV-2 RNA (ANGELINA) (NEGATIVE) 09/20/21 09/20/21 09/21/21 Range/Units 18:12 18:12 06:55 WBC 5.2 (5.0-10.0) 10^3/uL RBC 4.28 (4.2-5.4) 10^6/uL Hgb 12.3 (12.0-16.0) g/dL Hct 37.5 (37.0-47.0) % MCV 87.6 (80-100) fL MCH 28.7 (27.0-34.0) pg MCHC 32.8 L (33.0-35.0) g/dL Plt Count 223 (150-450) 10^3/uL Neut % (Auto) 81.6 H (42.2-75.2) % Lymph % (Auto) 14.9 L (20.5-50.1) % [place] % (Auto) 3.3 (2-8) % Eos % (Auto) 0.0 L (1.0-3.0) % Baso % (Auto) 0.2 (0.0-1.0) % Add Manual Diff Neutrophils % (Manual) (42-75) % Band Neutrophils % % Lymphocytes % (Manual) (20-50) % Monocytes % (Manual) (2-8) % PT (9.0-12.0) SEC INR (0.9-1.2) APTT (22.0-34.0) SEC D-Dimer, Quantitative (0-400) ng/mL Sodium (136-145) mmol/L Potassium (3.5-5.1) mmol/L Chloride (98-107) mmol/L Carbon Dioxide (21-32) mmol/L Anion Gap (7-13) mEq/L BUN (7-18) mg/dL Creatinine (0.55-1.02) mg/dL Est Cr Clr Drug Dosing mL/min Estimated GFR (MDRD) BUN/Creatinine Ratio (No establ ref range) Glucose (70-99) mg/dL Lactic Acid 1.8 (0.4-2.0) mmol/L Calcium (8.5-10.1) mg/dL Magnesium (1.8-2.4) mg/dL Ferritin 3086 H (8-252) mg/mL Total Bilirubin (0.2-1.0) mg/dL AST (15-37) U/L ALT (14-59) U/L Alkaline Phosphatase (46-116) U/L Lactate Dehydrogenase (81-234) U/L Troponin I High Sens (<=51) pg/mL C-Reactive Protein (0.0-0.9) mg/dL B-Natriuretic Peptide (0-100) pg/ml Total Protein (6.4-8.2) g/dL Albumin (3.4-5.0) g/dL Globulin Albumin/Globulin Ratio Influenza Type A RNA (NEGATIVE) RSV RNA (INAAT) (NEGATIVE) Influenza Type B RNA (NEGATIVE) SARS-CoV-2 RNA (ANGELINA) (NEGATIVE) 09/21/21 09/21/21 Range/Units 06:55 06:55 WBC (5.0-10.0) 10^3/uL RBC (4.2-5.4) 10^6/uL Hgb (12.0-16.0) g/dL Hct (37.0-47.0) % MCV (80-100) fL MCH (27.0-34.0) pg MCHC (33.0-35.0) g/dL Plt Count (150-450) 10^3/uL Neut % (Auto) (42.2-75.2) % Lymph % (Auto) (20.5-50.1) % [place] % (Auto) (2-8) % Eos % (Auto) (1.0-3.0) % Baso % (Auto) (0.0-1.0) % Add Manual Diff Neutrophils % (Manual) (42-75) % Band Neutrophils % % Lymphocytes % (Manual) (20-50) % Monocytes % (Manual) (2-8) % PT (9.0-12.0) SEC INR (0.9-1.2) APTT 25.6 (22.0-34.0) SEC D-Dimer, Quantitative 1250 H (0-400) ng/mL Sodium 145 (136-145) mmol/L Potassium 4.2 (3.5-5.1) mmol/L Chloride 109 H (98-107) mmol/L Carbon Dioxide 28 (21-32) mmol/L Anion Gap 12.2 (7-13) mEq/L BUN 4 L (7-18) mg/dL Creatinine 0.49 L (0.55-1.02) mg/dL Est Cr Clr Drug Dosing 90.99 mL/min Estimated GFR (MDRD) > 60 BUN/Creatinine Ratio 8.2 (No establ ref range) Glucose 189 H (70-99) mg/dL Lactic Acid (0.4-2.0) mmol/L Calcium 8.1 L (8.5-10.1) mg/dL Magnesium (1.8-2.4) mg/dL Ferritin (8-252) mg/mL Total Bilirubin 0.5 (0.2-1.0) mg/dL AST 31 (15-37) U/L ALT 31 (14-59) U/L Alkaline Phosphatase 45 L (46-116) U/L Lactate Dehydrogenase (81-234) U/L Troponin I High Sens (<=51) pg/mL C-Reactive Protein (0.0-0.9) mg/dL B-Natriuretic Peptide (0-100) pg/ml Total Protein 5.9 L (6.4-8.2) g/dL Albumin 2.2 L (3.4-5.0) g/dL Globulin 3.7 Albumin/Globulin Ratio 0.59 Influenza Type A RNA (NEGATIVE) RSV RNA (INAAT) (NEGATIVE) Influenza Type B RNA (NEGATIVE) SARS-CoV-2 RNA (ANGELINA) (NEGATIVE) Result Diagrams: 09/21/21 06:55 09/21/21 06:55 Emeterio Results Last 24 hrs: Microbiology 09/20/21 18:12 Anaerobic Blood Culture - Final Blood - Arm, Left Sepsis Event Note - Evaluation Sepsis Screening Result: No Definite Risk - Focused Exam Vital Signs: Vital Signs Temp Pulse Resp BP BP Pulse Ox 09/21/21 08:37 35.8 C L 81 20 110/74 96 09/21/21 03:21 35.7 C L 76 20 110/81 96 - Problem List & Annotations (1) COVID-19 in immunocompromised patient SNOMED Code(s): 946680896, 023109882 Code(s): U07.1 - COVID-19; D84.9 - IMMUNODEFICIENCY, UNSPECIFIED Status: Acute Current Visit: Yes (2) Hypoxia SNOMED Code(s): 005280545 Code(s): R09.02 - HYPOXEMIA Status: Acute Current Visit: Yes (3) Pneumonia due to COVID-19 virus SNOMED Code(s): 368469869264382243 Code(s): U07.1 - COVID-19; J12.82 - PNEUMONIA DUE TO CORONAVIRUS DISEASE 2019 Status: Acute Current Visit: Yes (4) Hypokalemia SNOMED Code(s): 78545744 Code(s): E87.6 - HYPOKALEMIA Status: Acute Current Visit: Yes (5) Diabetes mellitus, type II SNOMED Code(s): 96601215 Code(s): E11.9 - TYPE 2 DIABETES MELLITUS WITHOUT COMPLICATIONS Status: Acute Current Visit: Yes - Problem List Review Problem List Initiated/Reviewed/Updated: Yes - My Orders Last 24 Hours: My Active Orders 09/20/21 23:21 Patient Status [ADT] Routine Up With Assistance [RC] ASDIRECTED Vital Signs [RC] Q4H DVT/VTE Prophylaxis Reflex [OM.PC] Routine 09/20/21 23:23 Oxygen Therapy [RC] CONTINUOUS Pulse Oximetry [RC] PRN 09/20/21 23:24 Antiembolic Devices [RC] .Routine VTE/DVT Education [RC] 09/20/21 23:30 Enoxaparin [Lovenox] 40 mg SUBCUT DAILY Hydroxychloroquine [Plaquenil] 200 mg PO ASDIRECTED dexAMETHasone [Decadron] 6 mg IVPUSH DAILY 09/20/21 23:56 Code Status [Resuscitation Status] Routine 09/21/21 00:00 Blood Glucose Check, Bedside [RC] QIDACANDBED Dextrose 50% in Water 50 ml IVPUSH Q15M PRN Glucagon,Human Recombinant [GlucaGen] 1 mg IM Q15M PRN Piperacillin/Tazobactam [Zosyn] 3.375 gm Sodium Chloride 0.9% [Normal Saline AdvBag] 100 ml IV Q6H 09/21/21 Breakfast Consistent Carbohydrate Diet [DIET] 09/21/21 08:00 Insulin Lispro [HumaLOG] See Protocol SUBCUT WITHMEALSANDBED 09/21/21 09:00 Empagliflozin [Jardiance] 25 mg PO DAILY Potassium Chloride [Klor-Con 10] 20 meq PO DAILY SitaGLIPtin 100 mg PO DAILY 09/21/21 21:00 Azithromycin [Zithromax] 500 mg Sodium Chloride 0.9% [Normal Saline AdvBag] 250 ml IV Q24H - Plan Plan:: Ms. Lockwood, is a 55-year-old female with history of psoriatic arthritis on Humira, Plaquenil, and sulfasalazine, diabetes type 2 on oral hypoglycemics, hypertension, admitted to hospital today () because of hypoxia requiring oxygen, weakness, diarrhea, and Covid 19 positivity tested on 09/18/2021, even though the patient has symptoms for more than 2 weeks but not tested for Covid as she did not visit with any physician, she came to clinic only on09/18/2021 when she was weak, having difficulty with breathing, and looked dehydrated. That is the time she was tested for Covid but she likely had Covid prior to that positive test . Impression and plan: 1. COVID-19 infection with lower lobe pneumonia: The patient has now shortness of breath requiring oxygen and since he has the symptom for more than 2 weeks she has passed that window of remdesivir, will start her on dexamethasone 6 mg IV daily, and will continue her on Zosyn 3.375 mg iv every 6 hours , and also continue her on azithromycin at 500 mg IV daily. -will continue her with nasal cannula oxygen and titrated to keep the oxygen saturation at or above 90. - will check her renal lab, LFTs, and D-dimer daily. -will continue her on Lovenox 40 mg subcu daily. We will get chest x-ray in the morning. 2. Hypokalemia: Her potassium is low and this is likely secondary to poor oral intake as well as diarrhea, will replace potassium orally as well as intravenously and recheck the potassium after the infusion is done. 3. Diabetes type 2: We will start her on oral hypoglycemics and will check her blood sugar 4 times a day and also will continue her on sliding scale insulin as per hospital protocol. 4. Psoriatic arthritis: We will continue her with Plaquenil and hold sulfasalazine and Humira. 5. GI prophylaxis: We will start her on Protonix 40 mg p.o. daily. DVT prophylaxis: Patient has elevated D-dimer and will start her on Lovenox 40 mg subcu daily. CODE STATUS: Discussed with patient the CODE STATUS and she wish to be full code. This dictation for this patient is done via [employer] system.
[2021-09-21] MEDS: Sodium Chloride 0.9% 10 ML Syringe FLUSH PRN (17:38)
[2021-09-21] MEDS: Azithromycin 500 MG in Sodium Chloride 0.9% 250 ML IV SCH (21:01)
[2021-09-22] MEDS: Piperacillin/Tazobactam 3.375 GM in Sodium Chloride 0.9% 100 ML IV SCH ×3 (00:30→12:18)
[2021-09-22 07:02] LABS: ANION GAP 11.9 mEq/L (7-13); CHLORIDE,CL 108 mmol/L (98-107); SODIUM,NA 147 mmol/L (136-145)
[2021-09-22] MEDS ORDERED: LIDOCAINE 1% IV SCH (08:00)
[2021-09-22] MEDS ORDERED: POTASSIUM CHLORIDE IV SCH (08:00)
[2021-09-22] MEDS: Insulin Lispro 100 Units/ML 3 ML Vial SUBCUT SCH ×4 (11:55→21:30)
[2021-09-22] MEDS: LIDOCAINE 1% IV SCH ×2 (12:22→16:24)
[2021-09-22] MEDS: POTASSIUM CHLORIDE IV SCH ×2 (12:22→16:24)
[2021-09-22] MEDS: Dexamethasone 4 MG/ML SDV IVPUSH SCH (14:49)
[2021-09-22] MEDS: Enoxaparin 40 MG/0.4 ML Syringe SUBCUT SCH (14:53)
[2021-09-22] MEDS ORDERED: REMDESIVIR 200 MG in Sodium Chloride 0.9% 250 ML IV ONE (15:00)
[2021-09-22] MEDS ORDERED: TOCILIZUMAB IV ONE (17:00)
[2021-09-22] MEDS ORDERED: SODIUM CHLORIDE 0.9% IV ONE (17:00)
[2021-09-22] MEDS: Non-Formulary Medication 1 Each (Empagliflozin [Jardiance] 25 MG Tablet) PO SCH (20:59)
[2021-09-22] MEDS: Non-Formulary Medication 1 Each (Sitagliptin 100 MG Tablet) PO SCH (21:00)
[2021-09-22] MEDS: Potassium Chloride 10 MEQ Tab.ER PO SCH (21:00)
--- NOTE | 2021-09-22 21:19 | PCM.PN ---
- General Info Date of Service: 09/22/21 - Patient Data Vitals - Most Recent: Last Vital Signs Temp 98.3 F 09/22/21 17:03 Pulse 90 09/22/21 17:03 Resp 20 09/22/21 17:03 BP 117/81 09/22/21 17:03 Pulse Ox 94 L 09/22/21 17:03 Weight - Most Recent: 135 lb 9.6 oz I&O - Last 24 Hours: Intake & Output 09/22/21 09/22/21 09/22/21 06:59 14:59 22:59 Intake Total 103 Balance 103 Lab Results Last 24 Hours: Laboratory Results - last 24 hr 09/21/21 09/22/21 09/22/21 Range/Units 22:05 06:33 06:33 WBC 9.0 (5.0-10.0) 10^3/uL RBC 4.05 L (4.2-5.4) 10^6/uL Hgb 11.7 L (12.0-16.0) g/dL Hct 35.7 L (37.0-47.0) % MCV 88.1 (80-100) fL MCH 28.9 (27.0-34.0) pg MCHC 32.8 L (33.0-35.0) g/dL Plt Count 279 (150-450) 10^3/uL Sodium 147 H (136-145) mmol/L Potassium 2.9 L (3.5-5.1) mmol/L Chloride 108 H (98-107) mmol/L Carbon Dioxide 30 (21-32) mmol/L Anion Gap 11.9 (7-13) mEq/L BUN 6 L (7-18) mg/dL Creatinine 0.43 L (0.55-1.02) mg/dL Est Cr Clr Drug Dosing 103.68 mL/min Estimated GFR (MDRD) > 60 BUN/Creatinine Ratio 14.0 (No establ ref range) Glucose 116 H (70-99) mg/dL POC Glucose 167 H (70-99) mg/dL Calcium 8.0 L (8.5-10.1) mg/dL Total Bilirubin 0.4 (0.2-1.0) mg/dL Direct Bilirubin (0.0-0.2) mg/dL AST 26 (15-37) U/L ALT 26 (14-59) U/L Alkaline Phosphatase 38 L (46-116) U/L C-Reactive Protein (0.0-0.9) mg/dL Total Protein 5.3 L (6.4-8.2) g/dL Albumin 2.0 L (3.4-5.0) g/dL Globulin 3.3 Albumin/Globulin Ratio 0.61 09/22/21 09/22/21 09/22/21 Range/Units 06:33 06:33 08:01 WBC (5.0-10.0) 10^3/uL RBC (4.2-5.4) 10^6/uL Hgb (12.0-16.0) g/dL Hct (37.0-47.0) % MCV (80-100) fL MCH (27.0-34.0) pg MCHC (33.0-35.0) g/dL Plt Count (150-450) 10^3/uL Sodium (136-145) mmol/L Potassium (3.5-5.1) mmol/L Chloride (98-107) mmol/L Carbon Dioxide (21-32) mmol/L Anion Gap (7-13) mEq/L BUN (7-18) mg/dL Creatinine (0.55-1.02) mg/dL Est Cr Clr Drug Dosing mL/min Estimated GFR (MDRD) BUN/Creatinine Ratio (No establ ref range) Glucose (70-99) mg/dL POC Glucose 103 H (70-99) mg/dL Calcium (8.5-10.1) mg/dL Total Bilirubin (0.2-1.0) mg/dL Direct Bilirubin 0.1 (0.0-0.2) mg/dL AST (15-37) U/L ALT (14-59) U/L Alkaline Phosphatase (46-116) U/L C-Reactive Protein 6.9 H (0.0-0.9) mg/dL Total Protein (6.4-8.2) g/dL Albumin (3.4-5.0) g/dL Globulin Albumin/Globulin Ratio 09/22/21 09/22/21 Range/Units 12:10 17:00 WBC (5.0-10.0) 10^3/uL RBC (4.2-5.4) 10^6/uL Hgb (12.0-16.0) g/dL Hct (37.0-47.0) % MCV (80-100) fL MCH (27.0-34.0) pg MCHC (33.0-35.0) g/dL Plt Count (150-450) 10^3/uL Sodium (136-145) mmol/L Potassium (3.5-5.1) mmol/L Chloride (98-107) mmol/L Carbon Dioxide (21-32) mmol/L Anion Gap (7-13) mEq/L BUN (7-18) mg/dL Creatinine (0.55-1.02) mg/dL Est Cr Clr Drug Dosing mL/min Estimated GFR (MDRD) BUN/Creatinine Ratio (No establ ref range) Glucose (70-99) mg/dL POC Glucose 123 H 143 H (70-99) mg/dL Calcium (8.5-10.1) mg/dL Total Bilirubin (0.2-1.0) mg/dL Direct Bilirubin (0.0-0.2) mg/dL AST (15-37) U/L ALT (14-59) U/L Alkaline Phosphatase (46-116) U/L C-Reactive Protein (0.0-0.9) mg/dL Total Protein (6.4-8.2) g/dL Albumin (3.4-5.0) g/dL Globulin Albumin/Globulin Ratio [facility]io Results Last 24 Hours: Microbiology 09/20/21 19:20 Aerobic Blood Culture - Preliminary Blood - Venous - Lab Draw NO GROWTH AFTER 2 DAYS Anaerobic Blood Culture - Preliminary NO GROWTH AFTER 2 DAYS 09/20/21 18:12 Aerobic Blood Culture - Preliminary Blood - Arm, Left NO GROWTH AFTER 2 DAYS Anaerobic Blood Culture - Final Med Orders - Current: Current Medications Dexamethasone (Dexamethasone 4 Mg/Ml Sdv) 6 mg IVPUSH DAILY [facility] Last Admin: 09/22/21 14:49 Dose: 6 mg Documented by: Dextrose/Water (50% Dextrose In Water 50 Ml Syringe) 50 ml IVPUSH Q15M PRN PRN Reason: Hypoglycemia Enoxaparin Sodium (Enoxaparin 40 Mg/0.4 Ml Syringe) 40 mg SUBCUT DAILY [facility] Last Admin: 09/22/21 14:53 Dose: 40 mg Documented by: Glucagon (Glucagon,Human Recombinant 1 Mg Vial) 1 mg IM Q15M PRN PRN Reason: Hypoglycemia Sodium Chloride (Normal Saline) 500 mls @ 999 mls/hr IV .BOLUS [facility] Last Admin: 09/20/21 17:39 Dose: 999 mls/hr Documented by: Azithromycin 500 mg/ Sodium (Chloride) 250 mls @ 250 mls/hr IV Q24H [facility] Last Admin: 09/21/21 21:01 Dose: 250 mls/hr Documented by: Remdesivir 100 mg/ Sodium (Chloride) 100 mls @ 100 mls/hr IV Q24H [facility] Stop: 09/26/21 09:59 Ceftriaxone Sodium 1 gm/ (Sodium Chloride) 50 mls @ 100 mls/hr IV Q24H [facility] Insulin Human Lispro (Insulin Lispro 100 Units/Ml 3 Ml Vial) 0 unit SUBCUT WITHMEALSANDBED [facility]; Protocol Last Admin: 09/22/21 17:05 Dose: Not Given Documented by: Sodium Chloride (Sodium Chloride 0.9% 10 Ml Syringe) 10 ml FLUSH ASDIRECTED PRN PRN Reason: Keep Vein Open Last Admin: 09/21/21 17:38 Dose: 10 ml Documented by: Discontinued Medications Albuterol/Ipratropium (Albuterol/Ipratropium 3.0-0.5 Mg/3 Ml Neb Soln) 3 ml NEB ONETIME ONE Stop: 09/20/21 17:21 Last Admin: 09/20/21 17:30 Dose: 3 ml Documented by: Dexamethasone (Dexamethasone 4 Mg/Ml Sdv) 6 mg IVPUSH ONETIME ONE Stop: 09/20/21 17:30 Last Admin: 09/20/21 17:37 Dose: 6 mg Documented by: Hydroxychloroquine Sulfate (Hydroxychloroquine 200 Mg Tab) 200 mg PO ASDIRECTED [facility] Potassium Chloride 20 meq/ (Premix) 100 mls @ 50 mls/hr IV ONETIME ONE Stop: 09/20/21 20:52 Last Admin: 09/20/21 19:32 Dose: 50 mls/hr Documented by: Piperacillin Sod/Tazobactam (Sod 3.375 gm/ Sodium Chloride) 100 mls @ 200 mls/hr IV Q6H [facility] Last Infusion: 09/22/21 12:51 Dose: Infused Documented by: Potassium Chloride 20 meq/ (Premix) 100 mls @ 50 mls/hr IV ONETIME ONE Stop: 09/21/21 01:33 Last Admin: 09/21/21 03:03 Dose: 50 mls/hr Documented by: Azithromycin 500 mg/ Sodium (Chloride) 250 mls @ 250 mls/hr IV ONETIME ONE Stop: 09/21/21 00:44 Last Admin: 09/21/21 00:42 Dose: 250 mls/hr Documented by: Potassium Chloride 20 meq/ (Lidocaine HCl 2 ml/ Premix) 102 mls @ 51 mls/hr IV Q2H [facility] Stop: 09/22/21 15:59 Last Admin: 09/22/21 16:24 Dose: 51 mls/hr Documented by: Remdesivir 200 mg/ Sodium (Chloride) 250 mls @ 250 mls/hr IV ONETIME ONE Stop: 09/22/21 15:59 Last Infusion: 09/22/21 16:52 Dose: Infused Documented by: Tocilizumab 400 mg/Tocilizumab 80 mg/ Sodium Chloride 124 mls @ 124 mls/hr IV ONETIME ONE Stop: 09/22/21 17:59 Last Infusion: 09/22/21 18:24 Dose: Infused Documented by: Iopamidol (Iopamidol 755 Mg/Ml 100 Ml Bottle) 100 ml IVPUSH ONETIME ONE Stop: 09/20/21 19:13 Last Admin: 09/20/21 20:21 Dose: 100 ml Documented by: Lidocaine HCl (Lidocaine 1% 5 Ml Sdv) 1 ml INJECT ONETIME ONE Stop: 09/20/21 23:36 Last Admin: 09/21/21 03:00 Dose: Not Given Documented by: Lidocaine HCl (Lidocaine 1% 30 Ml Sdv) Confirm Administered Dose 30 ml .ROUTE .STK-MED ONE Stop: 09/21/21 02:00 Last Admin: 09/21/21 02:59 Dose: 1 ml Documented by: Non-Formulary Medication (Empagliflozin [Jardiance]) 25 mg PO DAILY [facility] Last Admin: 09/22/21 20:59 Dose: Not Given Documented by: Non-Formulary Medication (Sitagliptin) 100 mg PO DAILY [facility] Last Admin: 09/22/21 21:00 Dose: Not Given Documented by: Ondansetron HCl (Ondansetron 4 Mg/2 Ml Sdv) 4 mg IV ONETIME ONE Stop: 09/20/21 17:29 Last Admin: 09/20/21 17:37 Dose: 4 mg Documented by: Potassium Chloride (Potassium Chloride 10 Meq Tab.Er) 20 meq PO DAILY [facility] Last Admin: 09/22/21 21:00 Dose: Not Given Documented by: Sulfasalazine (Sulfasalazine 500 Mg Tab) 500 mg PO TID [facility] - Patient Data Lab Results Last 24 hrs: Laboratory Results - last 24 hr 09/21/21 09/22/21 09/22/21 Range/Units 22:05 06:33 06:33 WBC 9.0 (5.0-10.0) 10^3/uL RBC 4.05 L (4.2-5.4) 10^6/uL Hgb 11.7 L (12.0-16.0) g/dL Hct 35.7 L (37.0-47.0) % MCV 88.1 (80-100) fL MCH 28.9 (27.0-34.0) pg MCHC 32.8 L (33.0-35.0) g/dL Plt Count 279 (150-450) 10^3/uL Sodium 147 H (136-145) mmol/L Potassium 2.9 L (3.5-5.1) mmol/L Chloride 108 H (98-107) mmol/L Carbon Dioxide 30 (21-32) mmol/L Anion Gap 11.9 (7-13) mEq/L BUN 6 L (7-18) mg/dL Creatinine 0.43 L (0.55-1.02) mg/dL Est Cr Clr Drug Dosing 103.68 mL/min Estimated GFR (MDRD) > 60 BUN/Creatinine Ratio 14.0 (No establ ref range) Glucose 116 H (70-99) mg/dL POC Glucose 167 H (70-99) mg/dL Calcium 8.0 L (8.5-10.1) mg/dL Total Bilirubin 0.4 (0.2-1.0) mg/dL Direct Bilirubin (0.0-0.2) mg/dL AST 26 (15-37) U/L ALT 26 (14-59) U/L Alkaline Phosphatase 38 L (46-116) U/L C-Reactive Protein (0.0-0.9) mg/dL Total Protein 5.3 L (6.4-8.2) g/dL Albumin 2.0 L (3.4-5.0) g/dL Globulin 3.3 Albumin/Globulin Ratio 0.61 09/22/21 09/22/21 09/22/21 Range/Units 06:33 06:33 08:01 WBC (5.0-10.0) 10^3/uL RBC (4.2-5.4) 10^6/uL Hgb (12.0-16.0) g/dL Hct (37.0-47.0) % MCV (80-100) fL MCH (27.0-34.0) pg MCHC (33.0-35.0) g/dL Plt Count (150-450) 10^3/uL Sodium (136-145) mmol/L Potassium (3.5-5.1) mmol/L Chloride (98-107) mmol/L Carbon Dioxide (21-32) mmol/L Anion Gap (7-13) mEq/L BUN (7-18) mg/dL Creatinine (0.55-1.02) mg/dL Est Cr Clr Drug Dosing mL/min Estimated GFR (MDRD) BUN/Creatinine Ratio (No establ ref range) Glucose (70-99) mg/dL POC Glucose 103 H (70-99) mg/dL Calcium (8.5-10.1) mg/dL Total Bilirubin (0.2-1.0) mg/dL Direct Bilirubin 0.1 (0.0-0.2) mg/dL AST (15-37) U/L ALT (14-59) U/L Alkaline Phosphatase (46-116) U/L C-Reactive Protein 6.9 H (0.0-0.9) mg/dL Total Protein (6.4-8.2) g/dL Albumin (3.4-5.0) g/dL Globulin Albumin/Globulin Ratio 09/22/21 09/22/21 Range/Units 12:10 17:00 WBC (5.0-10.0) 10^3/uL RBC (4.2-5.4) 10^6/uL Hgb (12.0-16.0) g/dL Hct (37.0-47.0) % MCV (80-100) fL MCH (27.0-34.0) pg MCHC (33.0-35.0) g/dL Plt Count (150-450) 10^3/uL Sodium (136-145) mmol/L Potassium (3.5-5.1) mmol/L Chloride (98-107) mmol/L Carbon Dioxide (21-32) mmol/L Anion Gap (7-13) mEq/L BUN (7-18) mg/dL Creatinine (0.55-1.02) mg/dL Est Cr Clr Drug Dosing mL/min Estimated GFR (MDRD) BUN/Creatinine Ratio (No establ ref range) Glucose (70-99) mg/dL POC Glucose 123 H 143 H (70-99) mg/dL Calcium (8.5-10.1) mg/dL Total Bilirubin (0.2-1.0) mg/dL Direct Bilirubin (0.0-0.2) mg/dL AST (15-37) U/L ALT (14-59) U/L Alkaline Phosphatase (46-116) U/L C-Reactive Protein (0.0-0.9) mg/dL Total Protein (6.4-8.2) g/dL Albumin (3.4-5.0) g/dL Globulin Albumin/Globulin Ratio Result Diagrams: 09/23/21 06:27 09/23/21 06:27 Em[facility] Results Last 24 hrs: Microbiology 09/20/21 19:20 Aerobic Blood Culture - Preliminary Blood - Venous - Lab Draw NO GROWTH AFTER 2 DAYS Anaerobic Blood Culture - Preliminary NO GROWTH AFTER 2 DAYS 09/20/21 18:12 Aerobic Blood Culture - Preliminary Blood - Arm, Left NO GROWTH AFTER 2 DAYS Anaerobic Blood Culture - Final Sepsis Event Note - Evaluation Sepsis Screening Result: No Definite Risk - Focused Exam Vital Signs: Vital Signs Temp Pulse Resp BP Pulse Ox 09/22/21 17:03 98.3 F 90 20 117/81 94 L 09/22/21 14:00 98.2 F 88 18 115/83 93 L - Problem List Review Problem List Initiated/Reviewed/Updated: Yes - My Orders Last 24 Hours: My Active Orders 09/22/21 06:33 PROCALCITONIN [REF] Routine 09/22/21 14:29 BILIRUBIN DIRECT [CHEM] Stat 09/22/21 21:00 cefTRIAXone [Rocephin] 1 gm Sodium Chloride 0.9% [Normal Saline AdvBag] 50 ml IV Q24H 09/23/21 06:00 BILIRUBIN DIRECT [CHEM] DAILY COMPREHENSIVE METABOLIC PN,CMP [CHEM] DAILY 09/23/21 09:00 Remdesivir 100 mg Sodium Chloride 0.9% [Normal Saline AdvBag] 100 ml IV Q24H 09/24/21 06:00 BILIRUBIN DIRECT [CHEM] DAILY COMPREHENSIVE METABOLIC PN,CMP [CHEM] DAILY 09/25/21 06:00 BILIRUBIN DIRECT [CHEM] DAILY COMPREHENSIVE METABOLIC PN,CMP [CHEM] DAILY 09/26/21 06:00 BILIRUBIN DIRECT [CHEM] DAILY COMPREHENSIVE METABOLIC PN,CMP [CHEM] DAILY - Plan Plan:: SUBJECTIVE: Continues to feel severely lethargic and generally weak. Has little appetite, oral intake is low. ROS otherwise negative for new findings. OBJECTIVE: O2 sat low 90s on 6L nasal cannula. Lungs clear to auscultation. Physical exam otherwise negative for new or concerning findings. I viewed lab and imaging results in chart. ASSESSMENT / PLAN: Apoorva was admitted on 09/20/21 for approx 2 weeks of progressive malaise, myalgia, headaches and frequent chills; initially there was diarrhea as well which later resolved. Acute hypoxic resp failure. O2 requirement increased from 4 to 6L nasal cannula on 09/22. Covid19 pneumonia of both lungs in unvaccinated patient. Symptom onset circa 09/03, diagnosis 09/18. Dexamethasone since 09/20, remdesivir since 09/22, tocilizumab infusion (high risk of severe disease) on 09/22. Probable community acquired pneumonia of both lungs. Procal level pending. IV antibiotics since 09/20. Immunosuppressed status from psoriatic arthritis and ongoing use of hydroxychloroquine and sulfasalazine. Diabetes. Hypoxia worsened today. I discussed risks and benefits of remdesivir and tocilizumab; she agreed to their use; orders placed. Lovenox subcu Full code
[2021-09-22] MEDS: cefTRIAXone 1 GM in Sodium Chloride 0.9% 50 ML IV SCH (21:22)
[2021-09-22] MEDS: Azithromycin 500 MG in Sodium Chloride 0.9% 250 ML IV SCH (21:25)
[2021-09-23 07:52] LABS: ANION GAP 11.4 mEq/L (7-13); CHLORIDE,CL 107 mmol/L (98-107); SODIUM,NA 146 mmol/L (136-145)
[2021-09-23] MEDS: Insulin Lispro 100 Units/ML 3 ML Vial SUBCUT SCH ×4 (08:20→21:42)
[2021-09-23] MEDS: Dexamethasone 4 MG/ML SDV IVPUSH SCH (08:21)
[2021-09-23] MEDS: Sodium Chloride 0.9% 10 ML Syringe FLUSH PRN (08:26)
[2021-09-23] MEDS: Enoxaparin 40 MG/0.4 ML Syringe SUBCUT SCH (08:27)
[2021-09-23] MEDS: REMDESIVIR 100 MG in Sodium Chloride 0.9% 100 ML IV SCH (09:12)
[2021-09-23] MEDS: Non-Formulary Medication 1 Each (Sitagliptin 100 MG Tablet) PO SCH (12:15)
[2021-09-23] MEDS: Non-Formulary Medication 1 Each (Empagliflozin [Jardiance] 25 MG Tablet) PO SCH (12:15)
[2021-09-23] MEDS: Potassium Chloride 10 MEQ Tab.ER PO SCH ×2 (13:03→17:54)
[2021-09-23] MEDS ORDERED: Potassium Chloride 10 MEQ Tab.ER PO ONE (20:33)
--- NOTE | 2021-09-23 20:35 | PCM.PN ---
- General Info Date of Service: 09/23/21 - Patient Data Vitals - Most Recent: Last Vital Signs Temp 97.0 F 09/23/21 16:00 Pulse 101 H 09/23/21 16:00 Resp 18 09/23/21 16:00 BP 133/90 09/23/21 16:00 Pulse Ox 97 09/23/21 16:00 Weight - Most Recent: 135 lb 9.6 oz I&O - Last 24 Hours: Intake & Output 09/23/21 09/23/21 09/23/21 06:59 14:59 22:59 Intake Total 800 1200 Balance 800 1200 Lab Results Last 24 Hours: Laboratory Results - last 24 hr 09/22/21 09/23/21 09/23/21 Range/Units 21:20 06:27 06:27 WBC 4.0 L (5.0-10.0) 10^3/uL RBC 4.20 (4.2-5.4) 10^6/uL Hgb 12.0 (12.0-16.0) g/dL Hct 37.3 (37.0-47.0) % MCV 88.8 (80-100) fL MCH 28.6 (27.0-34.0) pg MCHC 32.2 L (33.0-35.0) g/dL Plt Count 274 (150-450) 10^3/uL Neut % (Auto) 66.8 (42.2-75.2) % Lymph % (Auto) 27.3 (20.5-50.1) % [place] % (Auto) 5.5 (2-8) % Eos % (Auto) 0.2 L (1.0-3.0) % Baso % (Auto) 0.2 (0.0-1.0) % Add Manual Diff Sodium 146 H (136-145) mmol/L Potassium 3.4 L (3.5-5.1) mmol/L Chloride 107 (98-107) mmol/L Carbon Dioxide 31 (21-32) mmol/L Anion Gap 11.4 (7-13) mEq/L BUN 7 (7-18) mg/dL Creatinine 0.41 L (0.55-1.02) mg/dL Est Cr Clr Drug Dosing 108.74 mL/min Estimated GFR (MDRD) > 60 BUN/Creatinine Ratio 17.1 (No establ ref range) Glucose 89 (70-99) mg/dL POC Glucose 201 H (70-99) mg/dL Calcium 7.6 L (8.5-10.1) mg/dL Total Bilirubin 0.3 (0.2-1.0) mg/dL AST 26 (15-37) U/L ALT 26 (14-59) U/L Alkaline Phosphatase 38 L (46-116) U/L C-Reactive Protein 10.7 H (0.0-0.9) mg/dL Total Protein 5.5 L (6.4-8.2) g/dL Albumin 2.1 L (3.4-5.0) g/dL Globulin 3.4 Albumin/Globulin Ratio 0.62 09/23/21 09/23/21 09/23/21 Range/Units 08:13 11:55 16:37 WBC (5.0-10.0) 10^3/uL RBC (4.2-5.4) 10^6/uL Hgb (12.0-16.0) g/dL Hct (37.0-47.0) % MCV (80-100) fL MCH (27.0-34.0) pg MCHC (33.0-35.0) g/dL Plt Count (150-450) 10^3/uL Neut % (Auto) (42.2-75.2) % Lymph % (Auto) (20.5-50.1) % [place] % (Auto) (2-8) % Eos % (Auto) (1.0-3.0) % Baso % (Auto) (0.0-1.0) % Add Manual Diff Sodium (136-145) mmol/L Potassium (3.5-5.1) mmol/L Chloride (98-107) mmol/L Carbon Dioxide (21-32) mmol/L Anion Gap (7-13) mEq/L BUN (7-18) mg/dL Creatinine (0.55-1.02) mg/dL Est Cr Clr Drug Dosing mL/min Estimated GFR (MDRD) BUN/Creatinine Ratio (No establ ref range) Glucose (70-99) mg/dL POC Glucose 87 153 H 175 H (70-99) mg/dL Calcium (8.5-10.1) mg/dL Total Bilirubin (0.2-1.0) mg/dL AST (15-37) U/L ALT (14-59) U/L Alkaline Phosphatase (46-116) U/L C-Reactive Protein (0.0-0.9) mg/dL Total Protein (6.4-8.2) g/dL Albumin (3.4-5.0) g/dL Globulin Albumin/Globulin Ratio 09/23/21 Range/Units 20:08 WBC (5.0-10.0) 10^3/uL RBC (4.2-5.4) 10^6/uL Hgb (12.0-16.0) g/dL Hct (37.0-47.0) % MCV (80-100) fL MCH (27.0-34.0) pg MCHC (33.0-35.0) g/dL Plt Count (150-450) 10^3/uL Neut % (Auto) (42.2-75.2) % Lymph % (Auto) (20.5-50.1) % [place] % (Auto) (2-8) % Eos % (Auto) (1.0-3.0) % Baso % (Auto) (0.0-1.0) % Add Manual Diff Sodium (136-145) mmol/L Potassium (3.5-5.1) mmol/L Chloride (98-107) mmol/L Carbon Dioxide (21-32) mmol/L Anion Gap (7-13) mEq/L BUN (7-18) mg/dL Creatinine (0.55-1.02) mg/dL Est Cr Clr Drug Dosing mL/min Estimated GFR (MDRD) BUN/Creatinine Ratio (No establ ref range) Glucose (70-99) mg/dL POC Glucose 188 H (70-99) mg/dL Calcium (8.5-10.1) mg/dL Total Bilirubin (0.2-1.0) mg/dL AST (15-37) U/L ALT (14-59) U/L Alkaline Phosphatase (46-116) U/L C-Reactive Protein (0.0-0.9) mg/dL Total Protein (6.4-8.2) g/dL Albumin (3.4-5.0) g/dL Globulin Albumin/Globulin Ratio Emeterio Results Last 24 Hours: Microbiology 09/20/21 19:20 Aerobic Blood Culture - Preliminary Blood - Venous - Lab Draw NO GROWTH AFTER 3 DAYS Anaerobic Blood Culture - Preliminary NO GROWTH AFTER 3 DAYS 09/20/21 18:12 Aerobic Blood Culture - Preliminary Blood - Arm, Left NO GROWTH AFTER 3 DAYS Anaerobic Blood Culture - Final Med Orders - Current: Current Medications Dexamethasone (Dexamethasone 4 Mg/Ml Sdv) 6 mg IVPUSH DAILY [facility] Last Admin: 09/23/21 08:21 Dose: 6 mg Documented by: Dextrose/Water (50% Dextrose In Water 50 Ml Syringe) 50 ml IVPUSH Q15M PRN PRN Reason: Hypoglycemia Enoxaparin Sodium (Enoxaparin 40 Mg/0.4 Ml Syringe) 40 mg SUBCUT DAILY [facility] Last Admin: 09/23/21 08:27 Dose: 40 mg Documented by: Glucagon (Glucagon,Human Recombinant 1 Mg Vial) 1 mg IM Q15M PRN PRN Reason: Hypoglycemia Azithromycin 500 mg/ Sodium (Chloride) 250 mls @ 250 mls/hr IV Q24H [facility] Last Admin: 09/22/21 21:25 Dose: 250 mls/hr Documented by: Remdesivir 100 mg/ Sodium (Chloride) 100 mls @ 100 mls/hr IV Q24H [facility] Stop: 09/26/21 09:59 Last Infusion: 09/23/21 10:12 Dose: Infused Documented by: Ceftriaxone Sodium 1 gm/ (Sodium Chloride) 50 mls @ 100 mls/hr IV Q24H [facility] Last Admin: 09/22/21 21:22 Dose: 100 mls/hr Documented by: Insulin Human Lispro (Insulin Lispro 100 Units/Ml 3 Ml Vial) 0 unit SUBCUT WITHMEALSANDBED [facility]; Protocol Last Admin: 09/23/21 17:55 Dose: 2 units Documented by: Potassium Chloride (Potassium Chloride 10 Meq Tab.Er) 40 meq PO ONETIME ONE Stop: 09/23/21 20:34 Sodium Chloride (Sodium Chloride 0.9% 10 Ml Syringe) 10 ml FLUSH ASDIRECTED PRN PRN Reason: Keep Vein Open Discontinued Medications Albuterol/Ipratropium (Albuterol/Ipratropium 3.0-0.5 Mg/3 Ml Neb Soln) 3 ml NEB ONETIME ONE Stop: 09/20/21 17:21 Last Admin: 09/20/21 17:30 Dose: 3 ml Documented by: Dexamethasone (Dexamethasone 4 Mg/Ml Sdv) 6 mg IVPUSH ONETIME ONE Stop: 09/20/21 17:30 Last Admin: 09/20/21 17:37 Dose: 6 mg Documented by: Hydroxychloroquine Sulfate (Hydroxychloroquine 200 Mg Tab) 200 mg PO ASDIRECTED [facility] Sodium Chloride (Normal Saline) 500 mls @ 999 mls/hr IV .BOLUS [facility] Last Admin: 09/20/21 17:39 Dose: 999 mls/hr Documented by: Potassium Chloride 20 meq/ (Premix) 100 mls @ 50 mls/hr IV ONETIME ONE Stop: 09/20/21 20:52 Last Admin: 09/20/21 19:32 Dose: 50 mls/hr Documented by: Piperacillin Sod/Tazobactam (Sod 3.375 gm/ Sodium Chloride) 100 mls @ 200 mls/hr IV Q6H [facility] Last Infusion: 09/22/21 12:51 Dose: Infused Documented by: Potassium Chloride 20 meq/ (Premix) 100 mls @ 50 mls/hr IV ONETIME ONE Stop: 09/21/21 01:33 Last Admin: 09/21/21 03:03 Dose: 50 mls/hr Documented by: Azithromycin 500 mg/ Sodium (Chloride) 250 mls @ 250 mls/hr IV ONETIME ONE Stop: 09/21/21 00:44 Last Admin: 09/21/21 00:42 Dose: 250 mls/hr Documented by: Potassium Chloride 20 meq/ (Lidocaine HCl 2 ml/ Premix) 102 mls @ 51 mls/hr IV Q2H [facility] Stop: 09/22/21 15:59 Last Admin: 09/22/21 16:24 Dose: 51 mls/hr Documented by: Remdesivir 200 mg/ Sodium (Chloride) 250 mls @ 250 mls/hr IV ONETIME ONE Stop: 09/22/21 15:59 Last Infusion: 09/22/21 16:52 Dose: Infused Documented by: Tocilizumab 400 mg/Tocilizumab 80 mg/ Sodium Chloride 124 mls @ 124 mls/hr IV ONETIME ONE Stop: 09/22/21 17:59 Last Infusion: 09/22/21 18:24 Dose: Infused Documented by: Iopamidol (Iopamidol 755 Mg/Ml 100 Ml Bottle) 100 ml IVPUSH ONETIME ONE Stop: 09/20/21 19:13 Last Admin: 09/20/21 20:21 Dose: 100 ml Documented by: Lidocaine HCl (Lidocaine 1% 5 Ml Sdv) 1 ml INJECT ONETIME ONE Stop: 09/20/21 23:36 Last Admin: 09/21/21 03:00 Dose: Not Given Documented by: Lidocaine HCl (Lidocaine 1% 30 Ml Sdv) Confirm Administered Dose 30 ml .ROUTE .STK-MED ONE Stop: 09/21/21 02:00 Last Admin: 09/21/21 02:59 Dose: 1 ml Documented by: Non-Formulary Medication (Empagliflozin [Jardiance]) 25 mg PO DAILY [facility] Last Admin: 09/23/21 12:15 Dose: Not Given Documented by: Non-Formulary Medication (Sitagliptin) 100 mg PO DAILY [facility] Last Admin: 09/23/21 12:15 Dose: Not Given Documented by: Ondansetron HCl (Ondansetron 4 Mg/2 Ml Sdv) 4 mg IV ONETIME ONE Stop: 09/20/21 17:29 Last Admin: 09/20/21 17:37 Dose: 4 mg Documented by: Potassium Chloride (Potassium Chloride 10 Meq Tab.Er) 20 meq PO DAILY [facility] Last Admin: 09/22/21 21:00 Dose: Not Given Documented by: Potassium Chloride (Potassium Chloride 10 Meq Tab.Er) 20 meq PO BIDMEALS [facility] Stop: 09/23/21 18:01 Last Admin: 09/23/21 17:54 Dose: 20 meq Documented by: Sodium Chloride (Sodium Chloride 0.9% 10 Ml Syringe) 10 ml FLUSH ASDIRECTED PRN PRN Reason: Keep Vein Open Last Admin: 09/23/21 08:26 Dose: 10 ml Documented by: Sulfasalazine (Sulfasalazine 500 Mg Tab) 500 mg PO TID [facility] - Patient Data Lab Results Last 24 hrs: Laboratory Results - last 24 hr 09/22/21 09/23/21 09/23/21 Range/Units 21:20 06:27 06:27 WBC 4.0 L (5.0-10.0) 10^3/uL RBC 4.20 (4.2-5.4) 10^6/uL Hgb 12.0 (12.0-16.0) g/dL Hct 37.3 (37.0-47.0) % MCV 88.8 (80-100) fL MCH 28.6 (27.0-34.0) pg MCHC 32.2 L (33.0-35.0) g/dL Plt Count 274 (150-450) 10^3/uL Neut % (Auto) 66.8 (42.2-75.2) % Lymph % (Auto) 27.3 (20.5-50.1) % [place] % (Auto) 5.5 (2-8) % Eos % (Auto) 0.2 L (1.0-3.0) % Baso % (Auto) 0.2 (0.0-1.0) % Add Manual Diff Sodium 146 H (136-145) mmol/L Potassium 3.4 L (3.5-5.1) mmol/L Chloride 107 (98-107) mmol/L Carbon Dioxide 31 (21-32) mmol/L Anion Gap 11.4 (7-13) mEq/L BUN 7 (7-18) mg/dL Creatinine 0.41 L (0.55-1.02) mg/dL Est Cr Clr Drug Dosing 108.74 mL/min Estimated GFR (MDRD) > 60 BUN/Creatinine Ratio 17.1 (No establ ref range) Glucose 89 (70-99) mg/dL POC Glucose 201 H (70-99) mg/dL Calcium 7.6 L (8.5-10.1) mg/dL Total Bilirubin 0.3 (0.2-1.0) mg/dL AST 26 (15-37) U/L ALT 26 (14-59) U/L Alkaline Phosphatase 38 L (46-116) U/L C-Reactive Protein 10.7 H (0.0-0.9) mg/dL Total Protein 5.5 L (6.4-8.2) g/dL Albumin 2.1 L (3.4-5.0) g/dL Globulin 3.4 Albumin/Globulin Ratio 0.62 09/23/21 09/23/21 09/23/21 Range/Units 08:13 11:55 16:37 WBC (5.0-10.0) 10^3/uL RBC (4.2-5.4) 10^6/uL Hgb (12.0-16.0) g/dL Hct (37.0-47.0) % MCV (80-100) fL MCH (27.0-34.0) pg MCHC (33.0-35.0) g/dL Plt Count (150-450) 10^3/uL Neut % (Auto) (42.2-75.2) % Lymph % (Auto) (20.5-50.1) % [place] % (Auto) (2-8) % Eos % (Auto) (1.0-3.0) % Baso % (Auto) (0.0-1.0) % Add Manual Diff Sodium (136-145) mmol/L Potassium (3.5-5.1) mmol/L Chloride (98-107) mmol/L Carbon Dioxide (21-32) mmol/L Anion Gap (7-13) mEq/L BUN (7-18) mg/dL Creatinine (0.55-1.02) mg/dL Est Cr Clr Drug Dosing mL/min Estimated GFR (MDRD) BUN/Creatinine Ratio (No establ ref range) Glucose (70-99) mg/dL POC Glucose 87 153 H 175 H (70-99) mg/dL Calcium (8.5-10.1) mg/dL Total Bilirubin (0.2-1.0) mg/dL AST (15-37) U/L ALT (14-59) U/L Alkaline Phosphatase (46-116) U/L C-Reactive Protein (0.0-0.9) mg/dL Total Protein (6.4-8.2) g/dL Albumin (3.4-5.0) g/dL Globulin Albumin/Globulin Ratio 09/23/21 Range/Units 20:08 WBC (5.0-10.0) 10^3/uL RBC (4.2-5.4) 10^6/uL Hgb (12.0-16.0) g/dL Hct (37.0-47.0) % MCV (80-100) fL MCH (27.0-34.0) pg MCHC (33.0-35.0) g/dL Plt Count (150-450) 10^3/uL Neut % (Auto) (42.2-75.2) % Lymph % (Auto) (20.5-50.1) % [place] % (Auto) (2-8) % Eos % (Auto) (1.0-3.0) % Baso % (Auto) (0.0-1.0) % Add Manual Diff Sodium (136-145) mmol/L Potassium (3.5-5.1) mmol/L Chloride (98-107) mmol/L Carbon Dioxide (21-32) mmol/L Anion Gap (7-13) mEq/L BUN (7-18) mg/dL Creatinine (0.55-1.02) mg/dL Est Cr Clr Drug Dosing mL/min Estimated GFR (MDRD) BUN/Creatinine Ratio (No establ ref range) Glucose (70-99) mg/dL POC Glucose 188 H (70-99) mg/dL Calcium (8.5-10.1) mg/dL Total Bilirubin (0.2-1.0) mg/dL AST (15-37) U/L ALT (14-59) U/L Alkaline Phosphatase (46-116) U/L C-Reactive Protein (0.0-0.9) mg/dL Total Protein (6.4-8.2) g/dL Albumin (3.4-5.0) g/dL Globulin Albumin/Globulin Ratio Result Diagrams: 09/23/21 06:27 09/23/21 06:27 Emeterio Results Last 24 hrs: Microbiology 09/20/21 19:20 Aerobic Blood Culture - Preliminary Blood - Venous - Lab Draw NO GROWTH AFTER 3 DAYS Anaerobic Blood Culture - Preliminary NO GROWTH AFTER 3 DAYS 09/20/21 18:12 Aerobic Blood Culture - Preliminary Blood - Arm, Left NO GROWTH AFTER 3 DAYS Anaerobic Blood Culture - Final Sepsis Event Note - Evaluation Sepsis Screening Result: No Definite Risk - Focused Exam Vital Signs: Vital Signs Temp Pulse Resp BP Pulse Ox 09/23/21 16:00 97.0 F 101 H 18 133/90 97 09/23/21 12:00 97.5 F 87 20 120/86 93 L - Problem List Review Problem List Initiated/Reviewed/Updated: Yes - My Orders Last 24 Hours: My Active Orders 09/22/21 21:00 [email or web address] [Rocephin] 1 gm Sodium Chloride 0.9% [Normal Saline AdvBag] 50 ml IV Q24H 09/23/21 09:00 Remdesivir 100 mg Sodium Chloride 0.9% [Normal Saline AdvBag] 100 ml IV Q24H 09/23/21 11:19 Sodium Chloride 0.9% [Saline Flush] 10 ml FLUSH ASDIRECTED PRN 09/23/21 17:32 Supplement (Dietary) [Dietary Supplements] [RC] TIDMEALS 09/23/21 20:33 Potassium Chloride [Klor-Con 10] 40 meq PO ONETIME ONE 09/24/21 05:11 CBC WITH AUTO DIFF [HEME] AM CRP [C-REACTIVE PROTEIN] [CHEM] AM 09/24/21 06:00 COMPREHENSIVE METABOLIC PN,CMP [CHEM] DAILY 09/25/21 05:11 CBC WITH AUTO DIFF [HEME] AM CRP [C-REACTIVE PROTEIN] [CHEM] AM 09/25/21 06:00 COMPREHENSIVE METABOLIC PN,CMP [CHEM] DAILY 09/26/21 05:11 CBC WITH AUTO DIFF [HEME] AM CRP [C-REACTIVE PROTEIN] [CHEM] AM 09/26/21 06:00 COMPREHENSIVE METABOLIC PN,CMP [CHEM] DAILY 09/27/21 05:11 CBC WITH AUTO DIFF [HEME] AM CRP [C-REACTIVE PROTEIN] [CHEM] AM - Plan Plan:: SUBJECTIVE: Improved lethargy and appetite today; however continued malaise. ROS otherwise negative for new findings. OBJECTIVE: Vitals viewed; O2 sat low 90s on 4L nasal cannula. Lungs clear to auscultation. Physical exam otherwise negative for new or concerning findings. I viewed lab and imaging results in chart. ASSESSMENT / PLAN: Apoorva was admitted on 09/20/21 for approx 2 weeks of progressive malaise, myalgia, headaches and frequent chills; initially there was diarrhea as well which later resolved. Acute hypoxic resp failure. O2 requirement increased from 4 to 6L nasal cannula on 09/22; improved to 4L on 09/23. Covid19 pneumonia of both lungs in unvaccinated patient. Symptom onset circa 09/03, diagnosis 09/18. Dexamethasone since 09/20, remdesivir since 09/22, tocilizumab infusion (high risk of severe disease) given on 09/22. Probable community acquired pneumonia of both lungs. Procal level pending. IV antibiotics since 09/20. Immunosuppressed status from psoriatic arthritis and ongoing use of hydroxychloroquine and sulfasalazine. Diabetes. On correction novolog inpatient. Lovenox subcu Full code
[2021-09-23] MEDS: Azithromycin 500 MG in Sodium Chloride 0.9% 250 ML IV SCH (21:48)
[2021-09-23] MEDS: cefTRIAXone 1 GM in Sodium Chloride 0.9% 50 ML IV SCH (21:52)
[2021-09-24 07:34] LABS: ANION GAP 10.3 mEq/L (7-13); CHLORIDE,CL 107 mmol/L (98-107)
[2021-09-24 07:35] LABS: SODIUM,NA 144 mmol/L (136-145)
[2021-09-24] MEDS: Insulin Lispro 100 Units/ML 3 ML Vial SUBCUT SCH ×4 (09:00→21:37)
[2021-09-24] MEDS: Enoxaparin 40 MG/0.4 ML Syringe SUBCUT SCH (09:01)
[2021-09-24] MEDS: Dexamethasone 4 MG/ML SDV IVPUSH SCH (09:01)
[2021-09-24] MEDS: Sodium Chloride 0.9% 10 ML Syringe FLUSH PRN (09:02)
[2021-09-24] MEDS: REMDESIVIR 100 MG in Sodium Chloride 0.9% 100 ML IV SCH (09:08)
--- NOTE | 2021-09-24 16:48 | PCM.PN ---
- General Info Date of Service: 09/24/21 Admission Dx/Problem (Free Text): Admission Diagnosis/Problem Admission Diagnosis/Problem Hypokalemia and Hypoxia, Diarrhea Subjective Update: pt is feeling better but she says she is very scared hat "she is not going to make it", she has been very weak for 2 weeks she is moving around in the bed, self proning, she is still on nasal cannula oxygen but oxygen need is down to 2 L and that keeping her O2 sat at close to 90 to 92%, her taste is bad and has no appetite, she is not doing any active participation with nursing not moving around. she has occasional cough, small amount of loose BMs Functional Status: Reports: Tolerating Diet. Denies: Ambulating - Review of Systems Pulmonary: Reports: Shortness of Breath (improved) Cardiovascular: Denies: Chest Pain, Edema Gastrointestinal: Denies: Abdominal Pain Genitourinary: Denies: Dysuria Neurological: Denies: Confusion - Patient Data Vitals - Most Recent: Last Vital Signs Temp 97.8 F 09/24/21 16:00 Pulse 87 09/24/21 16:00 Resp 18 09/24/21 16:00 BP 108/77 09/24/21 16:00 Pulse Ox 97 09/24/21 16:00 Weight - Most Recent: 135 lb 9.6 oz I&O - Last 24 Hours: Intake & Output 09/24/21 09/24/21 09/24/21 06:59 14:59 22:59 Intake Total 350 500 Balance 350 500 Lab Results Last 24 Hours: Laboratory Results - last 24 hr 09/22/21 09/23/21 09/23/21 Range/Units 06:33 16:37 20:08 WBC (5.0-10.0) 10^3/uL RBC (4.2-5.4) 10^6/uL Hgb (12.0-16.0) g/dL Hct (37.0-47.0) % MCV (80-100) fL MCH (27.0-34.0) pg MCHC (33.0-35.0) g/dL Plt Count (150-450) 10^3/uL Neut % (Auto) (42.2-75.2) % Lymph % (Auto) (20.5-50.1) % Weak[place] % (Auto) (2-8) % Eos % (Auto) (1.0-3.0) % Baso % (Auto) (0.0-1.0) % Sodium (136-145) mmol/L Potassium (3.5-5.1) mmol/L Chloride (98-107) mmol/L Carbon Dioxide (21-32) mmol/L Anion Gap (7-13) mEq/L BUN (7-18) mg/dL Creatinine (0.55-1.02) mg/dL Est Cr Clr Drug Dosing mL/min Estimated GFR (MDRD) BUN/Creatinine Ratio (No establ ref range) Glucose (70-99) mg/dL POC Glucose 175 H 188 H (70-99) mg/dL Calcium (8.5-10.1) mg/dL Total Bilirubin (0.2-1.0) mg/dL AST (15-37) U/L ALT (14-59) U/L Alkaline Phosphatase (46-116) U/L C-Reactive Protein (0.0-0.9) mg/dL Total Protein (6.4-8.2) g/dL Albumin (3.4-5.0) g/dL Globulin Albumin/Globulin Ratio Procalcitonin 0.08 ng/mL 09/24/21 09/24/21 09/24/21 Range/Units 06:45 06:45 06:45 WBC 4.5 L (5.0-10.0) 10^3/uL RBC 4.35 (4.2-5.4) 10^6/uL Hgb 12.5 (12.0-16.0) g/dL Hct 38.6 (37.0-47.0) % MCV 88.7 (80-100) fL MCH 28.7 (27.0-34.0) pg MCHC 32.4 L (33.0-35.0) g/dL Plt Count 321 (150-450) 10^3/uL Neut % (Auto) 63.9 (42.2-75.2) % Lymph % (Auto) 29.3 (20.5-50.1) % Weakley % (Auto) 6.2 (2-8) % Eos % (Auto) 0.4 L (1.0-3.0) % Baso % (Auto) 0.2 (0.0-1.0) % Sodium 144 (136-145) mmol/L Potassium 4.3 (3.5-5.1) mmol/L Chloride 107 (98-107) mmol/L Carbon Dioxide 31 (21-32) mmol/L Anion Gap 10.3 (7-13) mEq/L BUN 8 (7-18) mg/dL Creatinine 0.48 L (0.55-1.02) mg/dL Est Cr Clr Drug Dosing 92.88 mL/min Estimated GFR (MDRD) > 60 BUN/Creatinine Ratio 16.7 (No establ ref range) Glucose 93 (70-99) mg/dL POC Glucose (70-99) mg/dL Calcium 8.3 L (8.5-10.1) mg/dL Total Bilirubin 0.4 (0.2-1.0) mg/dL AST 28 (15-37) U/L ALT 30 (14-59) U/L Alkaline Phosphatase 39 L (46-116) U/L C-Reactive Protein 6.1 H (0.0-0.9) mg/dL Total Protein 5.7 L (6.4-8.2) g/dL Albumin 2.3 L (3.4-5.0) g/dL Globulin 3.4 Albumin/Globulin Ratio 0.68 Procalcitonin ng/mL 09/24/21 09/24/21 Range/Units 08:29 11:57 WBC (5.0-10.0) 10^3/uL RBC (4.2-5.4) 10^6/uL Hgb (12.0-16.0) g/dL Hct (37.0-47.0) % MCV (80-100) fL MCH (27.0-34.0) pg MCHC (33.0-35.0) g/dL Plt Count (150-450) 10^3/uL Neut % (Auto) (42.2-75.2) % Lymph % (Auto) (20.5-50.1) % Weak[place] % (Auto) (2-8) % Eos % (Auto) (1.0-3.0) % Baso % (Auto) (0.0-1.0) % Sodium (136-145) mmol/L Potassium (3.5-5.1) mmol/L Chloride (98-107) mmol/L Carbon Dioxide (21-32) mmol/L Anion Gap (7-13) mEq/L BUN (7-18) mg/dL Creatinine (0.55-1.02) mg/dL Est Cr Clr Drug Dosing mL/min Estimated GFR (MDRD) BUN/Creatinine Ratio (No establ ref range) Glucose (70-99) mg/dL POC Glucose 94 153 H (70-99) mg/dL Calcium (8.5-10.1) mg/dL Total Bilirubin (0.2-1.0) mg/dL AST (15-37) U/L ALT (14-59) U/L Alkaline Phosphatase (46-116) U/L C-Reactive Protein (0.0-0.9) mg/dL Total Protein (6.4-8.2) g/dL Albumin (3.4-5.0) g/dL Globulin Albumin/Globulin Ratio Procalcitonin ng/mL Em[facility] Results Last 24 Hours: Microbiology 09/20/21 19:20 Aerobic Blood Culture - Preliminary Blood - Venous - Lab Draw NO GROWTH AFTER 3 DAYS Anaerobic Blood Culture - Preliminary NO GROWTH AFTER 3 DAYS 09/20/21 18:12 Aerobic Blood Culture - Preliminary Blood - Arm, Left NO GROWTH AFTER 3 DAYS Anaerobic Blood Culture - Final Med Orders - Current: Current Medications Dexamethasone (Dexamethasone 4 Mg/Ml Sdv) 6 mg IVPUSH DAILY [facility] Last Admin: 09/24/21 09:01 Dose: 6 mg Documented by: Dextrose/Water (50% Dextrose In Water 50 Ml Syringe) 50 ml IVPUSH Q15M PRN PRN Reason: Hypoglycemia Enoxaparin Sodium (Enoxaparin 40 Mg/0.4 Ml Syringe) 40 mg SUBCUT DAILY [facility] Last Admin: 09/24/21 09:01 Dose: 40 mg Documented by: Glucagon (Glucagon,Human Recombinant 1 Mg Vial) 1 mg IM Q15M PRN PRN Reason: Hypoglycemia Azithromycin 500 mg/ Sodium (Chloride) 250 mls @ 250 mls/hr IV Q24H [facility] Last Admin: 09/23/21 21:48 Dose: 250 mls/hr Documented by: Remdesivir 100 mg/ Sodium (Chloride) 100 mls @ 100 mls/hr IV Q24H [facility] Stop: 09/26/21 09:59 Last Infusion: 09/24/21 10:10 Dose: Infused Documented by: Ceftriaxone Sodium 1 gm/ (Sodium Chloride) 50 mls @ 100 mls/hr IV Q24H [facility] Last Admin: 09/23/21 21:52 Dose: 100 mls/hr Documented by: Insulin Human Lispro (Insulin Lispro 100 Units/Ml 3 Ml Vial) 0 unit SUBCUT WITHMEALSANDBED [facility]; Protocol Last Admin: 09/24/21 12:52 Dose: 2 units Documented by: Sodium Chloride (Sodium Chloride 0.9% 10 Ml Syringe) 10 ml FLUSH ASDIRECTED PRN PRN Reason: Keep Vein Open Last Admin: 09/24/21 09:02 Dose: 10 ml Documented by: Discontinued Medications Albuterol/Ipratropium (Albuterol/Ipratropium 3.0-0.5 Mg/3 Ml Neb Soln) 3 ml NEB ONETIME ONE Stop: 09/20/21 17:21 Last Admin: 09/20/21 17:30 Dose: 3 ml Documented by: Dexamethasone (Dexamethasone 4 Mg/Ml Sdv) 6 mg IVPUSH ONETIME ONE Stop: 09/20/21 17:30 Last Admin: 09/20/21 17:37 Dose: 6 mg Documented by: Hydroxychloroquine Sulfate (Hydroxychloroquine 200 Mg Tab) 200 mg PO ASDIRECTED [facility] Sodium Chloride (Normal Saline) 500 mls @ 999 mls/hr IV .BOLUS [facility] Last Admin: 09/20/21 17:39 Dose: 999 mls/hr Documented by: Potassium Chloride 20 meq/ (Premix) 100 mls @ 50 mls/hr IV ONETIME ONE Stop: 09/20/21 20:52 Last Admin: 09/20/21 19:32 Dose: 50 mls/hr Documented by: Piperacillin Sod/Tazobactam (Sod 3.375 gm/ Sodium Chloride) 100 mls @ 200 mls/hr IV Q6H [facility] Last Infusion: 09/22/21 12:51 Dose: Infused Documented by: Potassium Chloride 20 meq/ (Premix) 100 mls @ 50 mls/hr IV ONETIME ONE Stop: 09/21/21 01:33 Last Admin: 09/21/21 03:03 Dose: 50 mls/hr Documented by: Azithromycin 500 mg/ Sodium (Chloride) 250 mls @ 250 mls/hr IV ONETIME ONE Stop: 09/21/21 00:44 Last Admin: 09/21/21 00:42 Dose: 250 mls/hr Documented by: Potassium Chloride 20 meq/ (Lidocaine HCl 2 ml/ Premix) 102 mls @ 51 mls/hr IV Q2H [facility] Stop: 09/22/21 15:59 Last Admin: 09/22/21 16:24 Dose: 51 mls/hr Documented by: Remdesivir 200 mg/ Sodium (Chloride) 250 mls @ 250 mls/hr IV ONETIME ONE Stop: 09/22/21 15:59 Last Infusion: 09/22/21 16:52 Dose: Infused Documented by: Tocilizumab 400 mg/Tocilizumab 80 mg/ Sodium Chloride 124 mls @ 124 mls/hr IV ONETIME ONE Stop: 09/22/21 17:59 Last Infusion: 09/22/21 18:24 Dose: Infused Documented by: Iopamidol (Iopamidol 755 Mg/Ml 100 Ml Bottle) 100 ml IVPUSH ONETIME ONE Stop: 09/20/21 19:13 Last Admin: 09/20/21 20:21 Dose: 100 ml Documented by: Lidocaine HCl (Lidocaine 1% 5 Ml Sdv) 1 ml INJECT ONETIME ONE Stop: 09/20/21 23:36 Last Admin: 09/21/21 03:00 Dose: Not Given Documented by: Lidocaine HCl (Lidocaine 1% 30 Ml Sdv) Confirm Administered Dose 30 ml .ROUTE .STK-MED ONE Stop: 09/21/21 02:00 Last Admin: 09/21/21 02:59 Dose: 1 ml Documented by: Non-Formulary Medication (Empagliflozin [Jardiance]) 25 mg PO DAILY [facility] Last Admin: 09/23/21 12:15 Dose: Not Given Documented by: Non-Formulary Medication (Sitagliptin) 100 mg PO DAILY [facility] Last Admin: 09/23/21 12:15 Dose: Not Given Documented by: Ondansetron HCl (Ondansetron 4 Mg/2 Ml Sdv) 4 mg IV ONETIME ONE Stop: 09/20/21 17:29 Last Admin: 09/20/21 17:37 Dose: 4 mg Documented by: Potassium Chloride (Potassium Chloride 10 Meq Tab.Er) 20 meq PO DAILY [facility] Last Admin: 09/22/21 21:00 Dose: Not Given Documented by: Potassium Chloride (Potassium Chloride 10 Meq Tab.Er) 20 meq PO BIDMEALS [facility] Stop: 09/23/21 18:01 Last Admin: 09/23/21 17:54 Dose: 20 meq Documented by: Potassium Chloride (Potassium Chloride 10 Meq Tab.Er) 40 meq PO ONETIME ONE Stop: 09/23/21 20:34 Last Admin: 09/23/21 21:42 Dose: 40 meq Documented by: Sodium Chloride (Sodium Chloride 0.9% 10 Ml Syringe) 10 ml FLUSH ASDIRECTED PRN PRN Reason: Keep Vein Open Last Admin: 09/23/21 08:26 Dose: 10 ml Documented by: Sulfasalazine (Sulfasalazine 500 Mg Tab) 500 mg PO TID [facility] - Exam Quality Assessment: Supplemental Oxygen General: Alert, Oriented Lungs: Rhonchi Cardiovascular: Regular Rate, Regular Rhythm GI/Abdominal Exam: Normal Bowel Sounds, Soft, Non-Tender Extremities: No Pedal Edema Skin: Warm, Dry Psy/Mental Status: Alert, Normal Affect, Normal Mood - Patient Data Lab Results Last 24 hrs: Laboratory Results - last 24 hr 09/22/21 09/23/21 09/23/21 Range/Units 06:33 16:37 20:08 WBC (5.0-10.0) 10^3/uL RBC (4.2-5.4) 10^6/uL Hgb (12.0-16.0) g/dL Hct (37.0-47.0) % MCV (80-100) fL MCH (27.0-34.0) pg MCHC (33.0-35.0) g/dL Plt Count (150-450) 10^3/uL Neut % (Auto) (42.2-75.2) % Lymph % (Auto) (20.5-50.1) % Weak[place] % (Auto) (2-8) % Eos % (Auto) (1.0-3.0) % Baso % (Auto) (0.0-1.0) % Sodium (136-145) mmol/L Potassium (3.5-5.1) mmol/L Chloride (98-107) mmol/L Carbon Dioxide (21-32) mmol/L Anion Gap (7-13) mEq/L BUN (7-18) mg/dL Creatinine (0.55-1.02) mg/dL Est Cr Clr Drug Dosing mL/min Estimated GFR (MDRD) BUN/Creatinine Ratio (No establ ref range) Glucose (70-99) mg/dL POC Glucose 175 H 188 H (70-99) mg/dL Calcium (8.5-10.1) mg/dL Total Bilirubin (0.2-1.0) mg/dL AST (15-37) U/L ALT (14-59) U/L Alkaline Phosphatase (46-116) U/L C-Reactive Protein (0.0-0.9) mg/dL Total Protein (6.4-8.2) g/dL Albumin (3.4-5.0) g/dL Globulin Albumin/Globulin Ratio Procalcitonin 0.08 ng/mL 09/24/21 09/24/21 09/24/21 Range/Units 06:45 06:45 06:45 WBC 4.5 L (5.0-10.0) 10^3/uL RBC 4.35 (4.2-5.4) 10^6/uL Hgb 12.5 (12.0-16.0) g/dL Hct 38.6 (37.0-47.0) % MCV 88.7 (80-100) fL MCH 28.7 (27.0-34.0) pg MCHC 32.4 L (33.0-35.0) g/dL Plt Count 321 (150-450) 10^3/uL Neut % (Auto) 63.9 (42.2-75.2) % Lymph % (Auto) 29.3 (20.5-50.1) % Weak[place] % (Auto) 6.2 (2-8) % Eos % (Auto) 0.4 L (1.0-3.0) % Baso % (Auto) 0.2 (0.0-1.0) % Sodium 144 (136-145) mmol/L Potassium 4.3 (3.5-5.1) mmol/L Chloride 107 (98-107) mmol/L Carbon Dioxide 31 (21-32) mmol/L Anion Gap 10.3 (7-13) mEq/L BUN 8 (7-18) mg/dL Creatinine 0.48 L (0.55-1.02) mg/dL Est Cr Clr Drug Dosing 92.88 mL/min Estimated GFR (MDRD) > 60 BUN/Creatinine Ratio 16.7 (No establ ref range) Glucose 93 (70-99) mg/dL POC Glucose (70-99) mg/dL Calcium 8.3 L (8.5-10.1) mg/dL Total Bilirubin 0.4 (0.2-1.0) mg/dL AST 28 (15-37) U/L ALT 30 (14-59) U/L Alkaline Phosphatase 39 L (46-116) U/L C-Reactive Protein 6.1 H (0.0-0.9) mg/dL Total Protein 5.7 L (6.4-8.2) g/dL Albumin 2.3 L (3.4-5.0) g/dL Globulin 3.4 Albumin/Globulin Ratio 0.68 Procalcitonin ng/mL 09/24/21 09/24/21 Range/Units 08:29 11:57 WBC (5.0-10.0) 10^3/uL RBC (4.2-5.4) 10^6/uL Hgb (12.0-16.0) g/dL Hct (37.0-47.0) % MCV (80-100) fL MCH (27.0-34.0) pg MCHC (33.0-35.0) g/dL Plt Count (150-450) 10^3/uL Neut % (Auto) (42.2-75.2) % Lymph % (Auto) (20.5-50.1) % Weak[place] % (Auto) (2-8) % Eos % (Auto) (1.0-3.0) % Baso % (Auto) (0.0-1.0) % Sodium (136-145) mmol/L Potassium (3.5-5.1) mmol/L Chloride (98-107) mmol/L Carbon Dioxide (21-32) mmol/L Anion Gap (7-13) mEq/L BUN (7-18) mg/dL Creatinine (0.55-1.02) mg/dL Est Cr Clr Drug Dosing mL/min Estimated GFR (MDRD) BUN/Creatinine Ratio (No establ ref range) Glucose (70-99) mg/dL POC Glucose 94 153 H (70-99) mg/dL Calcium (8.5-10.1) mg/dL Total Bilirubin (0.2-1.0) mg/dL AST (15-37) U/L ALT (14-59) U/L Alkaline Phosphatase (46-116) U/L C-Reactive Protein (0.0-0.9) mg/dL Total Protein (6.4-8.2) g/dL Albumin (3.4-5.0) g/dL Globulin Albumin/Globulin Ratio Procalcitonin ng/mL Result Diagrams: 09/24/21 06:45 09/24/21 06:45 Emeterio Results Last 24 hrs: Microbiology 09/20/21 19:20 Aerobic Blood Culture - Preliminary Blood - Venous - Lab Draw NO GROWTH AFTER 3 DAYS Anaerobic Blood Culture - Preliminary NO GROWTH AFTER 3 DAYS 09/20/21 18:12 Aerobic Blood Culture - Preliminary Blood - Arm, Left NO GROWTH AFTER 3 DAYS Anaerobic Blood Culture - Final Sepsis Event Note - Evaluation Sepsis Screening Result: No Definite Risk - Focused Exam Vital Signs: Vital Signs Temp Pulse Resp BP Pulse Ox 09/24/21 16:00 97.8 F 87 18 108/77 97 09/24/21 12:00 98.2 F 71 20 123/83 95 09/24/21 08:00 98.0 F 83 20 153/95 H 95 - Problem List & Annotations (1) COVID-19 in immunocompromised patient SNOMED Code(s): 981565826, 473025363 Code(s): U07.1 - COVID-19; D84.9 - IMMUNODEFICIENCY, UNSPECIFIED Status: Acute Current Visit: Yes (2) Diabetes mellitus, type II SNOMED Code(s): 59566438 Code(s): E11.9 - TYPE 2 DIABETES MELLITUS WITHOUT COMPLICATIONS Status: Acute Current Visit: Yes (3) Hypoxia SNOMED Code(s): 144199854 Code(s): R09.02 - HYPOXEMIA Status: Acute Current Visit: Yes (4) Pneumonia due to COVID-19 virus SNOMED Code(s): 924831424197398668 Code(s): U07.1 - COVID-19; J12.82 - PNEUMONIA DUE TO CORONAVIRUS DISEASE 2019 Status: Acute Current Visit: Yes - Problem List Review Problem List Initiated/Reviewed/Updated: Yes - My Orders Last 24 Hours: My Active Orders 09/25/21 05:11 CBC WITH AUTO DIFF [HEME] AM COMPREHENSIVE METABOLIC PN,CMP [CHEM] AM DD [D-DIMER QUANTITATIVE] [COAG] AM 09/26/21 05:11 CBC WITH AUTO DIFF [HEME] AM COMPREHENSIVE METABOLIC PN,CMP [CHEM] AM DD [D-DIMER QUANTITATIVE] [COAG] AM 09/27/21 05:11 CBC WITH AUTO DIFF [HEME] AM COMPREHENSIVE METABOLIC PN,CMP [CHEM] AM DD [D-DIMER QUANTITATIVE] [COAG] AM 09/28/21 05:11 CBC WITH AUTO DIFF [HEME] AM COMPREHENSIVE METABOLIC PN,CMP [CHEM] AM DD [D-DIMER QUANTITATIVE] [COAG] AM - Plan Plan:: Apoorva was admitted on 09/20/21 following approx 2 weeks of progressive malaise, myalgia, headaches and frequent chills; initially there was diarrhea as well which later resolved. she is immunocompromised with psoriatic arthritis and hydroxychloroquine and sulfasalazine use. Acute hypoxemic respiratory failure O2 requirement is improved down to 2 l/.min b/l Covid19 pneumonia in unvaccinated patient. Symptom onset circa 09/03, diagnosis 09/18. Dexamethasone since 09/20, remdesivir since 09/22, tocilizumab infusion (high risk of severe disease) given on 09/22. possible community acquired pneumonia Procal level is low IV ceftriaxone and azithromycin since 09/20. repeat procal stop Abx soon Diabetes. give supplemental insulin and hypoglycemia protocol as needed DVT prophylaxis Lovenox sq check Ddimer Full code d/w dr. Del Angel called patient's and gave update
[2021-09-24] MEDS: Azithromycin 500 MG in Sodium Chloride 0.9% 250 ML IV SCH (21:00)
[2021-09-24] MEDS: cefTRIAXone 1 GM in Sodium Chloride 0.9% 50 ML IV SCH (22:23)
[2021-09-25 07:05] LABS: CHLORIDE,CL 104 mmol/L (98-107); SODIUM,NA 145 mmol/L (136-145)
[2021-09-25] MEDS: REMDESIVIR 100 MG in Sodium Chloride 0.9% 100 ML IV SCH (08:50)
[2021-09-25] MEDS: Dexamethasone 6 MG TABLET PO SCH (08:53)
[2021-09-25] MEDS: Insulin Lispro 100 Units/ML 3 ML Vial SUBCUT SCH ×4 (08:53→21:04)
[2021-09-25] MEDS: Enoxaparin 40 MG/0.4 ML Syringe SUBCUT SCH (08:56)
--- NOTE | 2021-09-25 12:40 | PCM.PN ---
- General Info Date of Service: 09/25/21 Admission Dx/Problem (Free Text): Admission Diagnosis/Problem Admission Diagnosis/Problem Hypokalemia and Hypoxia, Diarrhea Subjective Update: pt is feeling better, less anxiety, she has been very weak for 2 weeks she is moving around in the bed, self proning, she is off oxygen she has occasional cough, no sputum Functional Status: Reports: Tolerating Diet, Ambulating (minimal) - Review of Systems General: Reports: Weakness Pulmonary: Reports: Shortness of Breath (much improved) Cardiovascular: Denies: Chest Pain Gastrointestinal: Denies: Abdominal Pain Neurological: Denies: Confusion - Patient Data Vitals - Most Recent: Last Vital Signs Temp 96.9 F 09/25/21 08:27 Pulse 80 09/25/21 08:27 Resp 20 09/25/21 08:27 BP 113/77 09/25/21 08:27 Pulse Ox 92 L 09/25/21 08:27 Weight - Most Recent: 135 lb 9.6 oz I&O - Last 24 Hours: Intake & Output 09/24/21 09/25/21 09/25/21 22:59 06:59 14:59 Intake Total 600 Balance 600 Lab Results Last 24 Hours: Laboratory Results - last 24 hr 09/24/21 09/24/21 09/25/21 Range/Units 16:38 20:18 06:23 WBC (5.0-10.0) 10^3/uL RBC (4.2-5.4) 10^6/uL Hgb (12.0-16.0) g/dL Hct (37.0-47.0) % MCV (80-100) fL MCH (27.0-34.0) pg MCHC (33.0-35.0) g/dL Plt Count (150-450) 10^3/uL Neut % (Auto) (42.2-75.2) % Lymph % (Auto) (20.5-50.1) % [place] % (Auto) (2-8) % Eos % (Auto) (1.0-3.0) % Baso % (Auto) (0.0-1.0) % Add Manual Diff D-Dimer, Quantitative (0-400) ng/mL Sodium 145 (136-145) mmol/L Potassium 4.0 (3.5-5.1) mmol/L Chloride 104 (98-107) mmol/L Carbon Dioxide 31 (21-32) mmol/L Anion Gap 14.0 H (7-13) mEq/L BUN 14 (7-18) mg/dL Creatinine 0.51 L (0.55-1.02) mg/dL Est Cr Clr Drug Dosing 87.42 mL/min Estimated GFR (MDRD) > 60 BUN/Creatinine Ratio 27.5 (No establ ref range) Glucose 112 H (70-99) mg/dL POC Glucose 279 H 158 H (70-99) mg/dL Calcium 8.5 (8.5-10.1) mg/dL Total Bilirubin 0.3 (0.2-1.0) mg/dL AST 21 (15-37) U/L ALT 33 (14-59) U/L Alkaline Phosphatase 44 L (46-116) U/L C-Reactive Protein 3.7 H (0.0-0.9) mg/dL Total Protein 5.9 L (6.4-8.2) g/dL Albumin 2.5 L (3.4-5.0) g/dL Globulin 3.4 Albumin/Globulin Ratio 0.74 09/25/21 09/25/21 09/25/21 Range/Units 06:23 06:23 08:03 WBC 5.9 (5.0-10.0) 10^3/uL RBC 4.67 (4.2-5.4) 10^6/uL Hgb 13.4 (12.0-16.0) g/dL Hct 41.1 (37.0-47.0) % MCV 88.0 (80-100) fL MCH 28.7 (27.0-34.0) pg MCHC 32.6 L (33.0-35.0) g/dL Plt Count 320 (150-450) 10^3/uL Neut % (Auto) 63.3 (42.2-75.2) % Lymph % (Auto) 28.1 (20.5-50.1) % [place] % (Auto) 8.1 H (2-8) % Eos % (Auto) 0.3 L (1.0-3.0) % Baso % (Auto) 0.2 (0.0-1.0) % Add Manual Diff D-Dimer, Quantitative 792 H (0-400) ng/mL Sodium (136-145) mmol/L Potassium (3.5-5.1) mmol/L Chloride (98-107) mmol/L Carbon Dioxide (21-32) mmol/L Anion Gap (7-13) mEq/L BUN (7-18) mg/dL Creatinine (0.55-1.02) mg/dL Est Cr Clr Drug Dosing mL/min Estimated GFR (MDRD) BUN/Creatinine Ratio (No establ ref range) Glucose (70-99) mg/dL POC Glucose 105 H (70-99) mg/dL Calcium (8.5-10.1) mg/dL Total Bilirubin (0.2-1.0) mg/dL AST (15-37) U/L ALT (14-59) U/L Alkaline Phosphatase (46-116) U/L C-Reactive Protein (0.0-0.9) mg/dL Total Protein (6.4-8.2) g/dL Albumin (3.4-5.0) g/dL Globulin Albumin/Globulin Ratio 09/25/21 Range/Units 11:56 WBC (5.0-10.0) 10^3/uL RBC (4.2-5.4) 10^6/uL Hgb (12.0-16.0) g/dL Hct (37.0-47.0) % MCV (80-100) fL MCH (27.0-34.0) pg MCHC (33.0-35.0) g/dL Plt Count (150-450) 10^3/uL Neut % (Auto) (42.2-75.2) % Lymph % (Auto) (20.5-50.1) % [place] % (Auto) (2-8) % Eos % (Auto) (1.0-3.0) % Baso % (Auto) (0.0-1.0) % Add Manual Diff D-Dimer, Quantitative (0-400) ng/mL Sodium (136-145) mmol/L Potassium (3.5-5.1) mmol/L Chloride (98-107) mmol/L Carbon Dioxide (21-32) mmol/L Anion Gap (7-13) mEq/L BUN (7-18) mg/dL Creatinine (0.55-1.02) mg/dL Est Cr Clr Drug Dosing mL/min Estimated GFR (MDRD) BUN/Creatinine Ratio (No establ ref range) Glucose (70-99) mg/dL POC Glucose 158 H (70-99) mg/dL Calcium (8.5-10.1) mg/dL Total Bilirubin (0.2-1.0) mg/dL AST (15-37) U/L ALT (14-59) U/L Alkaline Phosphatase (46-116) U/L C-Reactive Protein (0.0-0.9) mg/dL Total Protein (6.4-8.2) g/dL Albumin (3.4-5.0) g/dL Globulin Albumin/Globulin Ratio Emeterio Results Last 24 Hours: Microbiology 09/20/21 19:20 Aerobic Blood Culture - Preliminary Blood - Venous - Lab Draw NO GROWTH AFTER 4 DAYS Anaerobic Blood Culture - Preliminary NO GROWTH AFTER 4 DAYS 09/20/21 18:12 Aerobic Blood Culture - Preliminary Blood - Arm, Left NO GROWTH AFTER 4 DAYS Anaerobic Blood Culture - Final Med Orders - Current: Current Medications Dexamethasone (Dexamethasone 6 Mg Tablet) 6 mg PO DAILY@0800 [facility] Last Admin: 09/25/21 08:53 Dose: 6 mg Documented by: Dextrose/Water (50% Dextrose In Water 50 Ml Syringe) 50 ml IVPUSH Q15M PRN PRN Reason: Hypoglycemia Enoxaparin Sodium (Enoxaparin 40 Mg/0.4 Ml Syringe) 40 mg SUBCUT DAILY [facility] Last Admin: 09/25/21 08:56 Dose: 40 mg Documented by: Glucagon (Glucagon,Human Recombinant 1 Mg Vial) 1 mg IM Q15M PRN PRN Reason: Hypoglycemia Azithromycin 500 mg/ Sodium (Chloride) 250 mls @ 250 mls/hr IV Q24H [facility] Last Admin: 09/24/21 21:00 Dose: 250 mls/hr Documented by: Remdesivir 100 mg/ Sodium (Chloride) 100 mls @ 100 mls/hr IV Q24H [facility] Stop: 09/26/21 09:59 Last Infusion: 09/25/21 09:52 Dose: Infused Documented by: Ceftriaxone Sodium 1 gm/ (Sodium Chloride) 50 mls @ 100 mls/hr IV Q24H [facility] Last Admin: 09/24/21 22:23 Dose: 100 mls/hr Documented by: Insulin Human Lispro (Insulin Lispro 100 Units/Ml 3 Ml Vial) 0 unit SUBCUT WIT HMEALSANDBED [facility]; Protocol Last Admin: 09/25/21 08:53 Dose: Not Given Documented by: Sodium Chloride (Sodium Chloride 0.9% 10 Ml Syringe) 10 ml FLUSH ASDIRECTED PRN PRN Reason: Keep Vein Open Last Admin: 09/24/21 09:02 Dose: 10 ml Documented by: Discontinued Medications Albuterol/Ipratropium (Albuterol/Ipratropium 3.0-0.5 Mg/3 Ml Neb Soln) 3 ml NEB ONETIME ONE Stop: 09/20/21 17:21 Last Admin: 09/20/21 17:30 Dose: 3 ml Documented by: Dexamethasone (Dexamethasone 4 Mg/Ml Sdv) 6 mg IVPUSH ONETIME ONE Stop: 09/20/21 17:30 Last Admin: 09/20/21 17:37 Dose: 6 mg Documented by: Dexamethasone (Dexamethasone 4 Mg/Ml Sdv) 6 mg IVPUSH DAILY [facility] Last Admin: 09/24/21 09:01 Dose: 6 mg Documented by: Hydroxychloroquine Sulfate (Hydroxychloroquine 200 Mg Tab) 200 mg PO ASDIRECTED [facility] Sodium Chloride (Normal Saline) 500 mls @ 999 mls/hr IV .BOLUS [facility] Last Admin: 09/20/21 17:39 Dose: 999 mls/hr Documented by: Potassium Chloride 20 meq/ (Premix) 100 mls @ 50 mls/hr IV ONETIME ONE Stop: 09/20/21 20:52 Last Admin: 09/20/21 19:32 Dose: 50 mls/hr Documented by: Piperacillin Sod/Tazobactam (Sod 3.375 gm/ Sodium Chloride) 100 mls @ 200 mls/hr IV Q6H [facility] Last Infusion: 09/22/21 12:51 Dose: Infused Documented by: Potassium Chloride 20 meq/ (Premix) 100 mls @ 50 mls/hr IV ONETIME ONE Stop: 09/21/21 01:33 Last Admin: 09/21/21 03:03 Dose: 50 mls/hr Documented by: Azithromycin 500 mg/ Sodium (Chloride) 250 mls @ 250 mls/hr IV ONETIME ONE Stop: 09/21/21 00:44 Last Admin: 09/21/21 00:42 Dose: 250 mls/hr Documented by: Potassium Chloride 20 meq/ (Lidocaine HCl 2 ml/ Premix) 102 mls @ 51 mls/hr IV Q2H [facility] Stop: 09/22/21 15:59 Last Admin: 09/22/21 16:24 Dose: 51 mls/hr Documented by: Remdesivir 200 mg/ Sodium (Chloride) 250 mls @ 250 mls/hr IV ONETIME ONE Stop: 09/22/21 15:59 Last Infusion: 09/22/21 16:52 Dose: Infused Documented by: Tocilizumab 400 mg/Tocilizumab 80 mg/ Sodium Chloride 124 mls @ 124 mls/hr IV ONETIME ONE Stop: 09/22/21 17:59 Last Infusion: 09/22/21 18:24 Dose: Infused Documented by: Iopamidol (Iopamidol 755 Mg/Ml 100 Ml Bottle) 100 ml IVPUSH ONETIME ONE Stop: 09/20/21 19:13 Last Admin: 09/20/21 20:21 Dose: 100 ml Documented by: Lidocaine HCl (Lidocaine 1% 5 Ml Sdv) 1 ml INJECT ONETIME ONE Stop: 09/20/21 23:36 Last Admin: 09/21/21 03:00 Dose: Not Given Documented by: Lidocaine HCl (Lidocaine 1% 30 Ml Sdv) Confirm Administered Dose 30 ml .ROUTE .STK-MED ONE Stop: 09/21/21 02:00 Last Admin: 09/21/21 02:59 Dose: 1 ml Documented by: Non-Formulary Medication (Empagliflozin [Jardiance]) 25 mg PO DAILY [facility] Last Admin: 09/23/21 12:15 Dose: Not Given Documented by: Non-Formulary Medication (Sitagliptin) 100 mg PO DAILY [facility] Last Admin: 09/23/21 12:15 Dose: Not Given Documented by: Ondansetron HCl (Ondansetron 4 Mg/2 Ml Sdv) 4 mg IV ONETIME ONE Stop: 09/20/21 17:29 Last Admin: 09/20/21 17:37 Dose: 4 mg Documented by: Potassium Chloride (Potassium Chloride 10 Meq Tab.Er) 20 meq PO DAILY [facility] Last Admin: 09/22/21 21:00 Dose: Not Given Documented by: Potassium Chloride (Potassium Chloride 10 Meq Tab.Er) 20 meq PO BIDMEALS [facility] Stop: 09/23/21 18:01 Last Admin: 09/23/21 17:54 Dose: 20 meq Documented by: Potassium Chloride (Potassium Chloride 10 Meq Tab.Er) 40 meq PO ONETIME ONE Stop: 09/23/21 20:34 Last Admin: 09/23/21 21:42 Dose: 40 meq Documented by: Sodium Chloride (Sodium Chloride 0.9% 10 Ml Syringe) 10 ml FLUSH ASDIRECTED PRN PRN Reason: Keep Vein Open Last Admin: 09/23/21 08:26 Dose: 10 ml Documented by: Sulfasalazine (Sulfasalazine 500 Mg Tab) 500 mg PO TID [facility] - Exam General: Alert, Oriented Neck: Supple Lungs: Rhonchi Cardiovascular: Regular Rate, Regular Rhythm GI/Abdominal Exam: Normal Bowel Sounds, Soft, Non-Tender Extremities: No Pedal Edema Neurological: No New Focal Deficit Psy/Mental Status: Alert, Normal Affect, Normal Mood - Patient Data Lab Results Last 24 hrs: Laboratory Results - last 24 hr 09/24/21 09/24/21 09/25/21 Range/Units 16:38 20:18 06:23 WBC (5.0-10.0) 10^3/uL RBC (4.2-5.4) 10^6/uL Hgb (12.0-16.0) g/dL Hct (37.0-47.0) % MCV (80-100) fL MCH (27.0-34.0) pg MCHC (33.0-35.0) g/dL Plt Count (150-450) 10^3/uL Neut % (Auto) (42.2-75.2) % Lymph % (Auto) (20.5-50.1) % [place] % (Auto) (2-8) % Eos % (Auto) (1.0-3.0) % Baso % (Auto) (0.0-1.0) % Add Manual Diff D-Dimer, Quantitative (0-400) ng/mL Sodium 145 (136-145) mmol/L Potassium 4.0 (3.5-5.1) mmol/L Chloride 104 (98-107) mmol/L Carbon Dioxide 31 (21-32) mmol/L Anion Gap 14.0 H (7-13) mEq/L BUN 14 (7-18) mg/dL Creatinine 0.51 L (0.55-1.02) mg/dL Est Cr Clr Drug Dosing 87.42 mL/min Estimated GFR (MDRD) > 60 BUN/Creatinine Ratio 27.5 (No establ ref range) Glucose 112 H (70-99) mg/dL POC Glucose 279 H 158 H (70-99) mg/dL Calcium 8.5 (8.5-10.1) mg/dL Total Bilirubin 0.3 (0.2-1.0) mg/dL AST 21 (15-37) U/L ALT 33 (14-59) U/L Alkaline Phosphatase 44 L (46-116) U/L C-Reactive Protein 3.7 H (0.0-0.9) mg/dL Total Protein 5.9 L (6.4-8.2) g/dL Albumin 2.5 L (3.4-5.0) g/dL Globulin 3.4 Albumin/Globulin Ratio 0.74 09/25/21 09/25/21 09/25/21 Range/Units 06:23 06:23 08:03 WBC 5.9 (5.0-10.0) 10^3/uL RBC 4.67 (4.2-5.4) 10^6/uL Hgb 13.4 (12.0-16.0) g/dL Hct 41.1 (37.0-47.0) % MCV 88.0 (80-100) fL MCH 28.7 (27.0-34.0) pg MCHC 32.6 L (33.0-35.0) g/dL Plt Count 320 (150-450) 10^3/uL Neut % (Auto) 63.3 (42.2-75.2) % Lymph % (Auto) 28.1 (20.5-50.1) % [place] % (Auto) 8.1 H (2-8) % Eos % (Auto) 0.3 L (1.0-3.0) % Baso % (Auto) 0.2 (0.0-1.0) % Add Manual Diff D-Dimer, Quantitative 792 H (0-400) ng/mL Sodium (136-145) mmol/L Potassium (3.5-5.1) mmol/L Chloride (98-107) mmol/L Carbon Dioxide (21-32) mmol/L Anion Gap (7-13) mEq/L BUN (7-18) mg/dL Creatinine (0.55-1.02) mg/dL Est Cr Clr Drug Dosing mL/min Estimated GFR (MDRD) BUN/Creatinine Ratio (No establ ref range) Glucose (70-99) mg/dL POC Glucose 105 H (70-99) mg/dL Calcium (8.5-10.1) mg/dL Total Bilirubin (0.2-1.0) mg/dL AST (15-37) U/L ALT (14-59) U/L Alkaline Phosphatase (46-116) U/L C-Reactive Protein (0.0-0.9) mg/dL Total Protein (6.4-8.2) g/dL Albumin (3.4-5.0) g/dL Globulin Albumin/Globulin Ratio 09/25/21 Range/Units 11:56 WBC (5.0-10.0) 10^3/uL RBC (4.2-5.4) 10^6/uL Hgb (12.0-16.0) g/dL Hct (37.0-47.0) % MCV (80-100) fL MCH (27.0-34.0) pg MCHC (33.0-35.0) g/dL Plt Count (150-450) 10^3/uL Neut % (Auto) (42.2-75.2) % Lymph % (Auto) (20.5-50.1) % [place] % (Auto) (2-8) % Eos % (Auto) (1.0-3.0) % Baso % (Auto) (0.0-1.0) % Add Manual Diff D-Dimer, Quantitative (0-400) ng/mL Sodium (136-145) mmol/L Potassium (3.5-5.1) mmol/L Chloride (98-107) mmol/L Carbon Dioxide (21-32) mmol/L Anion Gap (7-13) mEq/L BUN (7-18) mg/dL Creatinine (0.55-1.02) mg/dL Est Cr Clr Drug Dosing mL/min Estimated GFR (MDRD) BUN/Creatinine Ratio (No establ ref range) Glucose (70-99) mg/dL POC Glucose 158 H (70-99) mg/dL Calcium (8.5-10.1) mg/dL Total Bilirubin (0.2-1.0) mg/dL AST (15-37) U/L ALT (14-59) U/L Alkaline Phosphatase (46-116) U/L C-Reactive Protein (0.0-0.9) mg/dL Total Protein (6.4-8.2) g/dL Albumin (3.4-5.0) g/dL Globulin Albumin/Globulin Ratio Result Diagrams: 09/25/21 06:23 09/25/21 06:23 Emeterio Results Last 24 hrs: Microbiology 09/20/21 19:20 Aerobic Blood Culture - Preliminary Blood - Venous - Lab Draw NO GROWTH AFTER 4 DAYS Anaerobic Blood Culture - Preliminary NO GROWTH AFTER 4 DAYS 09/20/21 18:12 Aerobic Blood Culture - Preliminary Blood - Arm, Left NO GROWTH AFTER 4 DAYS Anaerobic Blood Culture - Final Sepsis Event Note - Evaluation Sepsis Screening Result: No Definite Risk - Focused Exam Vital Signs: Vital Signs Temp Pulse Resp BP Pulse Ox 09/25/21 08:27 96.9 F 80 20 113/77 92 L 09/25/21 04:00 97.1 F 84 18 112/78 91 L - Problem List & Annotations (1) COVID-19 in immunocompromised patient SNOMED Code(s): 694892495, 497602950 Code(s): U07.1 - COVID-19; D84.9 - IMMUNODEFICIENCY, UNSPECIFIED Status: Acute Current Visit: Yes (2) Diabetes mellitus, type II SNOMED Code(s): 84631218 Code(s): E11.9 - TYPE 2 DIABETES MELLITUS WITHOUT COMPLICATIONS Status: Acute Current Visit: Yes (3) Hypoxia SNOMED Code(s): 635567969 Code(s): R09.02 - HYPOXEMIA Status: Acute Current Visit: Yes (4) Pneumonia due to COVID-19 virus SNOMED Code(s): 575126940842288416 Code(s): U07.1 - COVID-19; J12.82 - PNEUMONIA DUE TO CORONAVIRUS DISEASE 2019 Status: Acute Current Visit: Yes - Problem List Review Problem List Initiated/Reviewed/Updated: Yes - My Orders Last 24 Hours: My Active Orders 09/25/21 06:23 PROCALCITONIN [REF] AM 09/25/21 08:00 dexAMETHasone 6 mg PO DAILY@0800 09/26/21 05:11 CBC WITH AUTO DIFF [HEME] AM COMPREHENSIVE METABOLIC PN,CMP [CHEM] AM DD [D-DIMER QUANTITATIVE] [COAG] AM 09/27/21 05:11 CBC WITH AUTO DIFF [HEME] AM COMPREHENSIVE METABOLIC PN,CMP [CHEM] AM DD [D-DIMER QUANTITATIVE] [COAG] AM 09/28/21 05:11 CBC WITH AUTO DIFF [HEME] AM COMPREHENSIVE METABOLIC PN,CMP [CHEM] AM DD [D-DIMER QUANTITATIVE] [COAG] AM - Plan Plan:: Apoorva was admitted on 09/20/21 following approx 2 weeks of progressive malaise, myalgia, headaches and frequent chills; initially there was diarrhea as well which later resolved. she is immunocompromised with psoriatic arthritis and hydroxychloroquine and sulfasalazine use. Acute hypoxemic respiratory failure O2 requirement is improved down to [place] oxygen b/l Covid19 pneumonia in unvaccinated patient. Symptom onset circa 09/03, diagnosis 09/18. Dexamethasone since 09/20, remdesivir since 09/22, tocilizumab infusion (high risk of severe disease) given on 09/22. possible community acquired pneumonia Procal level is low IV ceftriaxone and azithromycin since 09/20. repeat procal pending stop Abx soon Diabetes. give supplemental insulin and hypoglycemia protocol as needed DVT prophylaxis Lovenox sq check Ddimer Full code
[2021-09-25] MEDS: Sodium Chloride 0.9% 10 ML Syringe FLUSH PRN ×2 (21:08→22:25)
[2021-09-25] MEDS: cefTRIAXone 1 GM in Sodium Chloride 0.9% 50 ML IV SCH (21:11)
[2021-09-25] MEDS: Azithromycin 500 MG in Sodium Chloride 0.9% 250 ML IV SCH (22:26)
[2021-09-26 06:58] LABS: ANION GAP 15.6 mEq/L (7-13); CHLORIDE,CL 104 mmol/L (98-107); SODIUM,NA 142 mmol/L (136-145)
[2021-09-26] MEDS: Dexamethasone 6 MG TABLET PO SCH (09:22)
[2021-09-26] MEDS: Enoxaparin 40 MG/0.4 ML Syringe SUBCUT SCH (09:22)
[2021-09-26] MEDS: Insulin Lispro 100 Units/ML 3 ML Vial SUBCUT SCH ×2 (09:23→12:26)
[2021-09-26] MEDS: REMDESIVIR 100 MG in Sodium Chloride 0.9% 100 ML IV SCH (09:24)
[2021-09-26] MEDS: Sodium Chloride 0.9% 10 ML Syringe FLUSH PRN (09:24)
--- NOTE | 2021-09-26 11:02 | PCM.DCSUM1 ---
Discharge Summary - Hospital Course Free Text/Narrative:: Apoorva was admitted on 09/20/21 following approx 2 weeks of progressive malaise, myalgia, headaches and frequent chills; initially there was diarrhea as well which later resolved. she is immunocompromised with psoriatic arthritis and hydroxychloroquine and sulfasalazine use. Acute hypoxemic respiratory failure O2 requirement is improved resting sats in the 90s walking sat 88 on ra, 90s on 2 l/min will send home with home oxygen b/l Covid19 pneumonia in unvaccinated patient. Symptom onset circa 09/03, diagnosis 09/18. Dexamethasone since 09/20, remdesivir x days tocilizumab infusion (high risk of severe disease) given on 09/22. community acquired pneumonia ruled out Procal level is low Diabetes. resume home meds psoriatic arthritis resume hydroxychloroquine and sulfasalazine hold biological agents for now would benefit from home care - nursing to evaluate, treat and educate hypoxemia, covid 19 infection, pt for strengthening ot for adl training, home safety eval Diagnosis: Stroke: No - Discharge Data Discharge Date: 09/26/21 Discharge Disposition: Home, Self-Care 01 Condition: Stable - Referral to Home Health Primary Care Physician: PCP None - Discharge Diagnosis/Problem(s) (1) COVID-19 in immunocompromised patient SNOMED Code(s): 617317295, 224701724 ICD Code: U07.1 - COVID-19; D84.9 - IMMUNODEFICIENCY, UNSPECIFIED Status: Acute Current Visit: Yes (2) Diabetes mellitus, type II SNOMED Code(s): 51138267 ICD Code: E11.9 - TYPE 2 DIABETES MELLITUS WITHOUT COMPLICATIONS Status: Acute Current Visit: Yes (3) Hypoxia SNOMED Code(s): 792890055 ICD Code: R09.02 - HYPOXEMIA Status: Acute Current Visit: Yes (4) Pneumonia due to COVID-19 virus SNOMED Code(s): 081660968649127323 ICD Code: U07.1 - COVID-19; J12.82 - PNEUMONIA DUE TO CORONAVIRUS DISEASE 2019 Status: Acute Current Visit: Yes - Patient Instructions Diet: Heart Healthy Diet Activity: As Tolerated - Discharge Plan Home Medications: Home Meds Empagliflozin [Jardiance] 25 mg PO DAILY 09/20/21 [History] Hydroxychloroquine [Plaquenil] 200 mg PO ASDIRECTED 09/20/21 [History] SitaGLIPtin [Januvia] 100 mg PO DAILY 09/20/21 [History] predniSONE [Prednisone] 5 mg PO DAILY 09/20/21 [History] sulfaSALAzine 500 mg PO TID 09/20/21 [History] Oxygen Therapy Mode: Nasal Cannula (2 l/min) Forms: ED Department Discharge Referrals: Riya Rabago MD [Physician] - - Discharge Summary/Plan Comment DC Time >30 min.: Yes Total # of Minutes for Discharge Time: 35 min , arranging home oxygen, discharge planning - General Info Date of Service: 09/26/21 - Review of Systems General: Reports: Weakness. Denies: Fever Pulmonary: Reports: Shortness of Breath (with activity) Cardiovascular: Denies: Chest Pain, Edema Gastrointestinal: Denies: Abdominal Pain Neurological: Denies: Confusion - Patient Data Vitals - Most Recent: Last Vital Signs Temp 97.1 F 09/26/21 08:00 Pulse 87 09/26/21 08:00 Resp 18 09/26/21 08:00 BP 99/74 09/26/21 08:00 Pulse Ox 90 L 09/26/21 08:00 Weight - Most Recent: 135 lb 9.6 oz I&O - Last 24 hours: Intake & Output 09/25/21 09/26/21 09/26/21 22:59 06:59 14:59 Intake Total 500 400 Balance 500 400 Lab Results - Last 24 hrs: Laboratory Results - last 24 hr 09/25/21 09/25/21 09/25/21 Range/Units 06:23 11:56 16:27 WBC (5.0-10.0) 10^3/uL RBC (4.2-5.4) 10^6/uL Hgb (12.0-16.0) g/dL Hct (37.0-47.0) % MCV (80-100) fL MCH (27.0-34.0) pg MCHC (33.0-35.0) g/dL Plt Count (150-450) 10^3/uL Neut % (Auto) (42.2-75.2) % Lymph % (Auto) (20.5-50.1) % Grady % (Auto) (2-8) % Eos % (Auto) (1.0-3.0) % Baso % (Auto) (0.0-1.0) % Add Manual Diff D-Dimer, Quantitative (0-400) ng/mL Sodium (136-145) mmol/L Potassium (3.5-5.1) mmol/L Chloride (98-107) mmol/L Carbon Dioxide (21-32) mmol/L Anion Gap (7-13) mEq/L BUN (7-18) mg/dL Creatinine (0.55-1.02) mg/dL Est Cr Clr Drug Dosing mL/min Estimated GFR (MDRD) BUN/Creatinine Ratio (No establ ref range) Glucose (70-99) mg/dL POC Glucose 158 H 235 H (70-99) mg/dL Calcium (8.5-10.1) mg/dL Total Bilirubin (0.2-1.0) mg/dL AST (15-37) U/L ALT (14-59) U/L Alkaline Phosphatase (46-116) U/L C-Reactive Protein (0.0-0.9) mg/dL Total Protein (6.4-8.2) g/dL Albumin (3.4-5.0) g/dL Globulin Albumin/Globulin Ratio Procalcitonin 0.06 ng/mL 09/25/21 09/26/21 09/26/21 Range/Units 20:33 06:00 06:00 WBC 7.8 (5.0-10.0) 10^3/uL RBC 4.76 (4.2-5.4) 10^6/uL Hgb 13.6 (12.0-16.0) g/dL Hct 41.3 (37.0-47.0) % MCV 86.8 (80-100) fL MCH 28.6 (27.0-34.0) pg MCHC 32.9 L (33.0-35.0) g/dL Plt Count 227 D (150-450) 10^3/uL Neut % (Auto) 75.3 H (42.2-75.2) % Lymph % (Auto) 17.3 L (20.5-50.1) % Grady % (Auto) 7.3 (2-8) % Eos % (Auto) 0.0 L (1.0-3.0) % Baso % (Auto) 0.1 (0.0-1.0) % Add Manual Diff D-Dimer, Quantitative (0-400) ng/mL Sodium 142 (136-145) mmol/L Potassium 4.6 (3.5-5.1) mmol/L Chloride 104 (98-107) mmol/L Carbon Dioxide 27 (21-32) mmol/L Anion Gap 15.6 H (7-13) mEq/L BUN 18 (7-18) mg/dL Creatinine 0.52 L (0.55-1.02) mg/dL Est Cr Clr Drug Dosing 85.74 mL/min Estimated GFR (MDRD) > 60 BUN/Creatinine Ratio 34.6 (No establ ref range) Glucose 177 H (70-99) mg/dL POC Glucose 207 H (70-99) mg/dL Calcium 8.4 L (8.5-10.1) mg/dL Total Bilirubin 0.2 (0.2-1.0) mg/dL AST 22 (15-37) U/L ALT 39 (14-59) U/L Alkaline Phosphatase 48 (46-116) U/L C-Reactive Protein 2.0 H (0.0-0.9) mg/dL Total Protein 5.7 L (6.4-8.2) g/dL Albumin 2.7 L (3.4-5.0) g/dL Globulin 3.0 Albumin/Globulin Ratio 0.90 Procalcitonin ng/mL 09/26/21 09/26/21 Range/Units 06:00 08:32 WBC (5.0-10.0) 10^3/uL RBC (4.2-5.4) 10^6/uL Hgb (12.0-16.0) g/dL Hct (37.0-47.0) % MCV (80-100) fL MCH (27.0-34.0) pg MCHC (33.0-35.0) g/dL Plt Count (150-450) 10^3/uL Neut % (Auto) (42.2-75.2) % Lymph % (Auto) (20.5-50.1) % Grady % (Auto) (2-8) % Eos % (Auto) (1.0-3.0) % Baso % (Auto) (0.0-1.0) % Add Manual Diff D-Dimer, Quantitative 477 H (0-400) ng/mL Sodium (136-145) mmol/L Potassium (3.5-5.1) mmol/L Chloride (98-107) mmol/L Carbon Dioxide (21-32) mmol/L Anion Gap (7-13) mEq/L BUN (7-18) mg/dL Creatinine (0.55-1.02) mg/dL Est Cr Clr Drug Dosing mL/min Estimated GFR (MDRD) BUN/Creatinine Ratio (No establ ref range) Glucose (70-99) mg/dL POC Glucose 138 H (70-99) mg/dL Calcium (8.5-10.1) mg/dL Total Bilirubin (0.2-1.0) mg/dL AST (15-37) U/L ALT (14-59) U/L Alkaline Phosphatase (46-116) U/L C-Reactive Protein (0.0-0.9) mg/dL Total Protein (6.4-8.2) g/dL Albumin (3.4-5.0) g/dL Globulin Albumin/Globulin Ratio Procalcitonin ng/mL TRENT Results - Last 24 hrs: Microbiology 09/20/21 19:20 Aerobic Blood Culture - Final Blood - Venous - Lab Draw NO GROWTH AFTER 5 DAYS Anaerobic Blood Culture - Final NO GROWTH AFTER 5 DAYS 09/20/21 18:12 Aerobic Blood Culture - Final Blood - Arm, Left NO GROWTH AFTER 5 DAYS Anaerobic Blood Culture - Final Med Orders - Current: Current Medications Dexamethasone (Dexamethasone 6 Mg Tablet) 6 mg PO DAILY@0800 [facility] Last Admin: 09/26/21 09:22 Dose: 6 mg Documented by: Dextrose/Water (50% Dextrose In Water 50 Ml Syringe) 50 ml IVPUSH Q15M PRN PRN Reason: Hypoglycemia Enoxaparin Sodium (Enoxaparin 40 Mg/0.4 Ml Syringe) 40 mg SUBCUT DAILY [facility] Last Admin: 09/26/21 09:22 Dose: 40 mg Documented by: Glucagon (Glucagon,Human Recombinant 1 Mg Vial) 1 mg IM Q15M PRN PRN Reason: Hypoglycemia Azithromycin 500 mg/ Sodium (Chloride) 250 mls @ 250 mls/hr IV Q24H [facility] Last Infusion: 09/26/21 01:40 Dose: Infused Documented by: Ceftriaxone Sodium 1 gm/ (Sodium Chloride) 50 mls @ 100 mls/hr IV Q24H [facility] Last Infusion: 09/25/21 22:24 Dose: Infused Documented by: Insulin Human Lispro (Insulin Lispro 100 Units/Ml 3 Ml Vial) 0 unit SUBCUT WITHMEALSANDBED [facility]; Protocol Last Admin: 09/26/21 09:23 Dose: Not Given Documented by: Sodium Chloride (Sodium Chloride 0.9% 10 Ml Syringe) 10 ml FLUSH ASDIRECTED PRN PRN Reason: Keep Vein Open Last Admin: 09/26/21 09:24 Dose: 10 ml Documented by: Discontinued Medications Albuterol/Ipratropium (Albuterol/Ipratropium 3.0-0.5 Mg/3 Ml Neb Soln) 3 ml NEB ONETIME ONE Stop: 09/20/21 17:21 Last Admin: 09/20/21 17:30 Dose: 3 ml Documented by: Dexamethasone (Dexamethasone 4 Mg/Ml Sdv) 6 mg IVPUSH ONETIME ONE Stop: 09/20/21 17:30 Last Admin: 09/20/21 17:37 Dose: 6 mg Documented by: Dexamethasone (Dexamethasone 4 Mg/Ml Sdv) 6 mg IVPUSH DAILY [facility] Last Admin: 09/24/21 09:01 Dose: 6 mg Documented by: Hydroxychloroquine Sulfate (Hydroxychloroquine 200 Mg Tab) 200 mg PO ASDIRECTED [facility] Sodium Chloride (Normal Saline) 500 mls @ 999 mls/hr IV .BOLUS [facility] Last Admin: 09/20/21 17:39 Dose: 999 mls/hr Documented by: Potassium Chloride 20 meq/ (Premix) 100 mls @ 50 mls/hr IV ONETIME ONE Stop: 09/20/21 20:52 Last Admin: 09/20/21 19:32 Dose: 50 mls/hr Documented by: Piperacillin Sod/Tazobactam (Sod 3.375 gm/ Sodium Chloride) 100 mls @ 200 mls/hr IV Q6H [facility] Last Infusion: 09/22/21 12:51 Dose: Infused Documented by: Potassium Chloride 20 meq/ (Premix) 100 mls @ 50 mls/hr IV ONETIME ONE Stop: 09/21/21 01:33 Last Admin: 09/21/21 03:03 Dose: 50 mls/hr Documented by: Azithromycin 500 mg/ Sodium (Chloride) 250 mls @ 250 mls/hr IV ONETIME ONE Stop: 09/21/21 00:44 Last Admin: 09/21/21 00:42 Dose: 250 mls/hr Documented by: Potassium Chloride 20 meq/ (Lidocaine HCl 2 ml/ Premix) 102 mls @ 51 mls/hr IV Q2H [facility] Stop: 09/22/21 15:59 Last Admin: 09/22/21 16:24 Dose: 51 mls/hr Documented by: Remdesivir 200 mg/ Sodium (Chloride) 250 mls @ 250 mls/hr IV ONETIME ONE Stop: 09/22/21 15:59 Last Infusion: 09/22/21 16:52 Dose: Infused Documented by: Remdesivir 100 mg/ Sodium (Chloride) 100 mls @ 100 mls/hr IV Q24H [facility] Stop: 09/26/21 09:59 Last Admin: 09/26/21 09:24 Dose: 100 mls/hr Documented by: Tocilizumab 400 mg/Tocilizumab 80 mg/ Sodium Chloride 124 mls @ 124 mls/hr IV ONETIME ONE Stop: 09/22/21 17:59 Last Infusion: 09/22/21 18:24 Dose: Infused Documented by: Iopamidol (Iopamidol 755 Mg/Ml 100 Ml Bottle) 100 ml IVPUSH ONETIME ONE Stop: 09/20/21 19:13 Last Admin: 09/20/21 20:21 Dose: 100 ml Documented by: Lidocaine HCl (Lidocaine 1% 5 Ml Sdv) 1 ml INJECT ONETIME ONE Stop: 09/20/21 23:36 Last Admin: 09/21/21 03:00 Dose: Not Given Documented by: Lidocaine HCl (Lidocaine 1% 30 Ml Sdv) Confirm Administered Dose 30 ml .ROUTE .STK-MED ONE Stop: 09/21/21 02:00 Last Admin: 09/21/21 02:59 Dose: 1 ml Documented by: Non-Formulary Medication (Empagliflozin [Jardiance]) 25 mg PO DAILY [facility] Last Admin: 09/23/21 12:15 Dose: Not Given Documented by: Non-Formulary Medication (Sitagliptin) 100 mg PO DAILY [facility] Last Admin: 09/23/21 12:15 Dose: Not Given Documented by: Ondansetron HCl (Ondansetron 4 Mg/2 Ml Sdv) 4 mg IV ONETIME ONE Stop: 09/20/21 17:29 Last Admin: 09/20/21 17:37 Dose: 4 mg Documented by: Potassium Chloride (Potassium Chloride 10 Meq Tab.Er) 20 meq PO DAILY [facility] Last Admin: 09/22/21 21:00 Dose: Not Given Documented by: Potassium Chloride (Potassium Chloride 10 Meq Tab.Er) 20 meq PO BIDMEALS [facility] Stop: 09/23/21 18:01 Last Admin: 09/23/21 17:54 Dose: 20 meq Documented by: Potassium Chloride (Potassium Chloride 10 Meq Tab.Er) 40 meq PO ONETIME ONE Stop: 09/23/21 20:34 Last Admin: 09/23/21 21:42 Dose: 40 meq Documented by: Sodium Chloride (Sodium Chloride 0.9% 10 Ml Syringe) 10 ml FLUSH ASDIRECTED PRN PRN Reason: Keep Vein Open Last Admin: 09/23/21 08:26 Dose: 10 ml Documented by: Sulfasalazine (Sulfasalazine 500 Mg Tab) 500 mg PO TID [facility] - Exam Quality Assessment: Denies: Supplemental Oxygen General: Reports: Alert, Oriented Neck: Reports: Supple Lungs: Reports: Normal Respiratory Effort, Rhonchi Cardiovascular: Reports: Regular Rate, Regular Rhythm GI/Abdominal Exam: Normal Bowel Sounds, Soft, Non-Tender Extremities: No Pedal Edema
[2021-09-26 13:17] VITALS: BP 101/70; PULSE 74
== END 2021-09-26 15:25 | disposition home or self-care (01) | DRG 177 ==
LOC: DL.ED 17:10 → DL.MS 21:59
PROVIDERS: ADMIT Internal Medicine Nephrology; ATTEND Student in an Organized Health Care Education/Training Program
PROC: XW033E5 Introduction of Remdesivir Anti-infective into Peripheral Vein, Percutaneous Approach, New Technology Group 5 (ICD-10-PCS; principal; 2021-09-20)
PROC: 3E0333Z Introduction of Anti-inflammatory into Peripheral Vein, Percutaneous Approach (ICD-10-PCS; 2021-09-20)
PROC: 8E0ZXY6 Isolation (ICD-10-PCS; 2021-09-20)
DX: U07.1 COVID-19 (principal); J96.01 Acute respiratory failure with hypoxia; J12.82 Pneumonia due to coronavirus disease 2019; D84.9 Immunodeficiency, unspecified; L40.50 Arthropathic psoriasis, unspecified; E11.9 Type 2 diabetes mellitus without complications; E87.6 Hypokalemia; K21.9 Gastro-esophageal reflux disease without esophagitis; E78.5 Hyperlipidemia, unspecified; F41.9 Anxiety disorder, unspecified; F32.A Depression, unspecified; Z79.4 Long term (current) use of insulin; Z79.899 Other long term (current) drug therapy; Z90.49 Acquired absence of other specified parts of digestive tract; Z79.2 Long term (current) use of antibiotics
CPT/HCPCS: 0241U; 36415; 71260; 80053; 82248; 82728; 82947; 83605; 83615; 83735; 83880; 84145; 84484; 85025; 85027; 85379; 85610; 85730; 86140; 87040; 94640; A9270-GY; J0456; J0696; J1100; J1650; J1815-GY; J2405; J2543; J3480; J7040; J7050; J7620-GY; J8540; Q0249; Q9967

== ENCOUNTER → 2023-07-15 | Day surgery (SDC) | payer OTHER ==
[~2023-07-15] MED LIST: Dextrose 5%-0.45% NaCl 1,000 ML IV SCH; Midazolam 1 MG/ML 2 ML SDV IV ONE; Midazolam 1 MG/ML 2 ML SDV ONE; fentaNYL 100 MCG/2 ML SDV IV ONE; fentaNYL 100 MCG/2 ML SDV ONE
[2023-07-15 09:36] VITALS: BP 126/80; PULSE 89
== END ==
LOC: DL.ENDO 06:49
PROVIDERS: ATTEND Internal Medicine Gastroenterology
DX: Z12.11 Encounter for screening for malignant neoplasm of colon (principal); K64.8 Other hemorrhoids; K64.4 Residual hemorrhoidal skin tags; F41.9 Anxiety disorder, unspecified; E78.5 Hyperlipidemia, unspecified; E11.9 Type 2 diabetes mellitus without complications; E66.09 Other obesity due to excess calories; E05.90 Thyrotoxicosis, unspecified without thyrotoxic crisis or storm; L40.9 Psoriasis, unspecified; F41.1 Generalized anxiety disorder; F17.210 Nicotine dependence, cigarettes, uncomplicated; Z68.27 Body mass index [BMI] 27.0-27.9, adult; Z88.2 Allergy status to sulfonamides; Z88.8 Allergy status to other drugs, medicaments and biological substances; Z98.890 Other specified postprocedural states; Z86.19 Personal history of other infectious and parasitic diseases; Z86.16 Personal history of COVID-19
CPT/HCPCS: 45378; J2250; J3010; J7042